=== PATIENT | male | born 1950 | race Caucasian/White ===

== ENCOUNTER 2016-05-21 11:20 | Emergency (ER) | payer MEDICARE ==
[2016-05-21] MEDS ORDERED: Fluorescein Sodium TOPICAL* 1 MG TEST ONE (12:24)
[2016-05-21] MEDS ORDERED: BSS OPTH.SOL* BTL ONE (12:25)
[2016-05-21] MEDS ORDERED: Tetracaine 0.5% OPTH.SOL 15ML* BTL ONE (12:26)
--- NOTE | 2016-05-21 12:45 | UC ---
Eye Complaint HPI - HPI Summary HPI Summary: 66 male presents with complaints of right eye swelling, redness and discharge that began Saturday evening. Patient states the symptoms have not improved over the past couple of days. He tried using sterile drops of his wives that seemed to help this morning but it then symptoms returned. Admits to a clear discharge that makes him feel as though something is in his eye. Denies getting anything in eye, scratching eye and green goopy discharge. Denies itching, crusting, and visual changes. Admits to having dry eyes and long distance driving does make this worse. Patient drove Saturday 4 hours, symptoms began shortly after. Denies fever/chills and any other medications. Patient does complain of mild irritation and pain upon movement and describes it "as though something is in my eye". Admits to it causing a slight headache. Patient does not wear contacts , does wear reading glasses. - History of Current Complaint Chief Complaint: UCEye Stated Complaint: EYE COMPLAINT Time Seen by Provider: 05/21/16 11:48 Hx Obtained From: Patient Onset/Duration: Sudden Onset, Lasting Days, Still Present Timing: Constant Severity Initially: Mild Severity Currently: Moderate Location of Injury: Conjunctiva, Globe Character: Foreign Body Sensation Aggravating Factor(s): Other - movement Alleviating Factor(s): Eye Drops Associated Signs And Symptoms: Positive: Drainage (Clear), Swelling. Negative: Vision Impairment Right, Vision Impairment Left, Fever - Risk Factors Penetrating Injury Risk Factor: Negative Globe Rupture Risk Factors: Negative Acute Glaucoma Risk Factors: Negative Optic Artery Occlusion Risk Factors: Negative - Allergies/Home Medications Allergies/Adverse Reactions: Allergies Allergy/AdvReac Type Severity Reaction Status Date / Time No Known Allergies Allergy Verified 05/21/16 11:52 Home Medications: Home Medications Atorvastatin* [Lipitor*] 20 mg PO 1700 05/21/16 [History Confirmed 05/21/16] PMH/Surg Hx/FS Hx/Imm Hx Endocrine History Of: Denies: Diabetes, Thyroid Disease Cardiovascular History Of: Denies: Cardiac Disorders, Hypertension Respiratory History Of: Denies: COPD, Asthma GI/ History Of: Denies: Ulcer - Surgical History Surgical History: None - Family History Known Family History: Positive: None - Social History Alcohol Use: Daily Substance Use Type: None Smoking Status (MU): Never Smoked Tobacco - Immunization History Vaccination Up to Date: Yes Review of Systems Constitutional: Negative Skin: Negative Eyes: Drainage, Eye Redness ENT: Negative Respiratory: Negative Cardiovascular: Negative Gastrointestinal: Negative Motor: Negative Neurovascular: Negative Musculoskeletal: Negative Neurological: Headache Psychological: Negative All Other Systems Reviewed And Are Negative: Yes Physical Exam Triage Information Reviewed: Yes Appearance: Well-Appearing, No Pain Distress, Well-Nourished Vital Signs: Initial Vital Signs Temp 98.6 F 05/21/16 11:48 Pulse 52 05/21/16 11:48 Resp 18 05/21/16 11:48 BP 151/76 05/21/16 11:48 Pulse Ox 98 05/21/16 11:48 BP noted and recommended follow up with PCP to have it re-checked. States it typically runs around the 140's systolic. Vital Signs Reviewed: Yes Eyes: Positive: Conjunctiva Inflamed, Discharge - clear, Other: - PERRLA. Some irritation/pain with EOM however they are intact. fluroscein stain preformed right eye and without FB and corneal abrasion. no sign of blephartis. conjunctiva red and inflammed. clear discharge. denies pruritis. swelling and erythema of upper and lower lid right eye noted. fundoscopic exam and visual acuity normal. ENT Exam: Normal ENT: Positive: Normal ENT inspection, Hearing grossly normal, Pharynx normal, TMs normal Dental Exam: Normal Dental: Negative: Percussion Tenderness @, Cervical Lymphadenopathy Neck exam: Normal Neck: Positive: Supple, Nontender, No Lymphadenopathy Respiratory: Positive: Chest non-tender, Lungs clear, Normal breath sounds, No respiratory distress, No accessory muscle use Cardiovascular: Positive: RRR, No Murmur Abdominal Exam: Normal Musculoskeletal: Positive: Strength Intact, ROM Intact Neurological: Positive: Alert Psychological Exam: Normal Skin Exam: Normal Procedures - Eye Procedure Alcaine Drops Administered: Yes - right eye for fluroscein stain procedure Eye Complaint Course/Dx - Course Course Of Treatment: OTC treatment recommended due to symptoms not appearing to be bacterial at this time. appears to be suffering from viral conjunctivitis. patient was educated on worsening signs and symptoms to watch out for and to return for. unable to check eye pressure without tonopen however does not appear to be suffering from acute angle glaucoma at this time. antihistamine and lubrication drops, hot/cool compresses treatment at this time. tylenol for pain. follow up with pcp about blood pressure. follow up with optho especially if symptoms do not improve. 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 You may also want to try eye lubricants, also over the counter. Take ibuprofen/aleve as needed for pain and headache. Use warm compresses to help draw out discharge and cool compresses for swelling and to soothe. If your symptoms worsen such as vision loss, increasing pain, or increased swelling or do not improve please seek medical attention promptly. Follow up with your primary care provider or eye doctor in the next couple of days. Keep hands and fingers out of eyes as much as possible. Wash hands frequently and change pillow cases/towels as this is very contagious.
== END 2016-05-21 12:52 | disposition home or self-care (01) ==
LOC: UCEAST 11:20
DX: B30.9 Viral conjunctivitis, unspecified (principal)
CPT/HCPCS: 99201; A9270-GY; G0463

== ENCOUNTER 2017-03-06 12:34 | Observation (INO) | payer MEDICARE ==
--- NOTE | 2017-02-21 08:06 | HP ---
CC: Dr. Campoverde * PREOPERATIVE HISTORY AND PHYSICAL: DATE OF ADMISSION: DATE OF PREOPERATIVE HISTORY AND PHYSICAL EXAMINATION: 02/20/17 This patient is scheduled for same-day surgery admission by Dr. Vasquez on 03/06/17. ATTENDING SURGEON: Myke Vasquez MD * (dictated by Fransico Daley NP). CHIEF COMPLAINT: Bilateral inguinal hernias and umbilical hernias. HISTORY OF PRESENT ILLNESS: The patient is a 67-year-old male referred to Dr. Vasquez from Dr. Campoverde for evaluation of bilateral inguinal hernias and umbilical hernias. The patient states he has known about the hernias for about 3 years. They seldom lead to discomfort, but he is cautious about lifting to prevent exacerbation. He is still able to do most activities. He denies any signs or symptoms to suggest incarceration or strangulation. He has occasional constipation and pushes on the inguinal area at times to help evacuation. He underwent colonoscopy in May 2016 when he was still living in [place] and multiple benign polyps were found; the gastroenterologyt recommended repeat colonoscopy within a year and the patient does have a referal to Gastroenterology. Dr. Vasquez examined the patient and in the standing position, large bilateral inguinal hernias are identified; in the supine position, umbilical hernia is identified. Dr. Vasquez has recommended laparoscopic repair of the bilateral inguinal hernias with mesh and open umbilical hernia repair at the same setting. Dr. Vasquez described the nature of the surgical procedures, the rationale for the procedure, the relevant risks and benefits and today, I reviewed the expected postoperative care and recovery. The patient has had a chance to ask questions and stated that he understands the information and is satisfied with the answers given to his questions. He will sign surgical consent on the day of surgery. PAST MEDICAL HISTORY: 1. Hypercholesterolemia. 2. Attention deficit disorder associated with anxiety and depression. 3. Migraine headaches. PAST SURGICAL HISTORY: Tonsillectomy. MEDICATIONS: 1. Metoprolol 25 mg one half tablet p.o. b.i.d. and he takes this for prevention of migraine headaches. 2. Atorvastatin 40 mg in the morning. 3. Sumatriptan 100 mg p.r.n. migraine headache, use 100 mg at the onset of the headache and may repeat after 2 hours as needed. ALLERGIES: No known drug allergies. FAMILY HISTORY: No known anesthesia complications, bleeding tendencies, or clotting disorders. SOCIAL HISTORY: He is and is retired. He is a former smoker who quit in 1969. He drinks approximately 5 alcoholic beverages per week and denies the use of other substances and exercises regularly. REVIEW OF SYSTEMS: Constitutional: No fever, chills, excessive fatigue or weight loss. Endocrine: No diabetes or thyroid disease. Hematologic: No easy bruising or bleeding. No previous blood transfusions. Respiratory: No dyspnea on exertion. No chronic cough. Cardiovascular: No anginal chest pain or palpitations. Gastrointestinal: As described in history of present illness. Genitourinary: No dysuria. Musculoskeletal: No joint or back pain. Neurologic: Occasional migraine headache. General: No history of deep vein thrombosis or pulmonary embolism; he states that he had a very slow recovery from anesthesia after colonoscopy in May 2016 while hospitalized in [place] and he states that his heart rate went down into the 30s during the recovery from anesthesia. PHYSICAL EXAMINATION GENERAL SURVEY: The patient is a 67-year-old male well developed, well nourished, in no acute distress. VITAL SIGNS: Height 72 inches, weight 179 pounds. Body mass index 24.3. Blood pressure 126/76, pulse 64 and regular, respiratory rate 16, temperature 96.9 tympanic. HEENT: Benign. NECK: Supple. No cervical lymphadenopathy. BACK: No CVA tenderness. LUNGS: Breath sounds bilaterally clear and equal. HEART: Regular rate and rhythm. No murmurs or rubs appreciated. ABDOMEN: Active bowel sounds. Soft and nondistended. Umbilical hernia is significantly tender. There are no overlying skin changes. No organomegaly. PELVIC: Inguinal exam is done by Dr. Vasquez revealed large bilateral inguinal hernias. Testicles normally descended without lesion. RECTAL: Deferred. MUSCULOSKELETAL: Full range of motion. No edema. No skin lesions. NEUROLOGIC: Alert and oriented x3. Steady gait. SKIN: Warm, dry, and intact. IMPRESSION: Bilateral inguinal hernias and umbilical hernia. PLAN: Same-day surgery admission to Dr. Vasquez's service on 03/06/17 , for laparoscopic repair of bilateral inguinal hernias with mesh and open umbilical hernia repair. FRANSICO DALEY, SPECIALIST FIELD ENGINEER [id number]/[facility] #: [id number] PARMJIT
[~2017-03-06 12:34] MED LIST: Buffered Lidocaine 0.9% SYRIN* 5 ML/SYR SYRINGE INTRADERM ONE; Buffered Lidocaine 0.9% SYRIN* 5 ML/SYR SYRINGE ONE; ceFAZolin 2 GM PREMIX (*) 2 GM/50 ML BAG IVPB ONE
[2017-03-06] MEDS ORDERED: fentaNYL* 50 MCG/ML 2 ML VIAL (100 MCG VIAL) ONE ×5 (15:21→21:11)
[2017-03-06] MEDS ORDERED: Midazolam* 1 MG/ML 2 ML VIAL (2 MG) ONE (15:21)
[2017-03-06] MEDS ORDERED: Bupivacaine 0.25% SDV* 30 ML ONE (16:03)
[2017-03-06] MEDS ORDERED: Lidocaine 2% PF * 5 ML VIAL ONE (16:17)
[2017-03-06] MEDS ORDERED: Ondansetron INJ* 2 MG/ML VIAL ONE (16:17)
[2017-03-06] MEDS ORDERED: Succinylcholine* 20 MG/ML 10 ML VIAL ONE (16:17)
[2017-03-06] MEDS ORDERED: Dexamethasone IV* 4 MG/ML 1 ML (4 MG) ONE (16:17)
[2017-03-06] MEDS ORDERED: Propofol* 10 MG/ML 20 ML BTL IV PUSH ONE (16:17)
[2017-03-06] MEDS ORDERED: Cisatracurium* 2 MG/ML MDV 5 ML ONE (16:33)
[2017-03-06] MEDS ORDERED: Naloxone* 0.4 MG/ML 1 ML VIAL IV PRN (16:45)
[2017-03-06] MEDS ORDERED: Metoclopramide IV* 5 MG/ML 2 ML VIAL IV PRN (16:45)
[2017-03-06] MEDS ORDERED: HYDROmorphone INJ* 1 MG/ML CARPUJECT SYRINGE IV PRN (16:45)
[2017-03-06] MEDS ORDERED: EPHEDrine (Pressors)* 50 MG/ML VIAL ONE (16:53)
--- NOTE | 2017-03-06 18:59 | BRIEFOPN ---
Brief Operative Note - Surgery Procedures: Pre-OP Diagnoses: Bilateral inguinal hernia, umbilical hernia Post-op Diagnosis: same Procedure: Laparoscopic bilateral hernia repair with mesh, umbilical hernia repair Surgeon: Pedro Asst: Avel Anethesia: JOSE Acosta EBL: 40cc IVF: 1800cc LR Specimen: none Drains: none
[2017-03-06] MEDS: fentaNYL* 50 MCG/ML 2 ML VIAL (100 MCG VIAL) IV PRN ×5 (19:03→21:13)
[2017-03-06] MEDS ORDERED: HYDROmorphone INJ* 2 MG/ML CARPUJECT SYRINGE ONE (19:11)
[2017-03-06] MEDS ORDERED: oxyCODONE/Acetamin 5/325 MG* TAB ONE (21:12)
[2017-03-06] MEDS ORDERED: Ondansetron INJ* 2 MG/ML VIAL IV PRN (22:50)
[2017-03-06] MEDS ORDERED: SUMAtriptan TAB* 100 MG PO PRN (22:52)
[2017-03-06] MEDS ORDERED: Morphine INJ* 2 MG/ML 1 ML SYRINGE (TWO MG - NEW SYRINGE VERSION) IV PRN (22:54)
[2017-03-06] MEDS ORDERED: Ketorolac INJ* 30 MG/ML 1 ML VIAL ONE (23:13)
[2017-03-06] MEDS: Ketorolac INJ* 30 MG/ML 1 ML VIAL IV PRN (23:14)
[2017-03-07] MEDS: oxyCODONE/Acetamin 5/325 MG* TAB PO PRN ×2 (01:18→11:22)
[2017-03-07 04:14] VITALS: BP 125/45
[2017-03-07] MEDS: Ketorolac INJ* 30 MG/ML 1 ML VIAL IV PRN (05:59)
[2017-03-07] MEDS ORDERED: Heparin VIAL(*) 5000 UNITS/ML VIAL (FIVE THOUSAND) SUBCUT SCH (06:00)
[2017-03-07] MEDS ORDERED: Metoprolol Tartrate TAB* 25 MG PO SCH (09:00)
--- NOTE | 2017-03-07 11:11 | OP ---
CC: Dr. Terrence Campoverde * DATE OF OPERATION: 03/06/17 - ROOM #343 DATE OF : 46 SURGEON: Myke Vasquez MD INTEGRATION LEAD: EILEEN Ko ANESTHESIOLOGIST: Vannessa Acosta MD ANESTHESIA: General. PRE-OP DIAGNOSES: Bilateral inguinal hernia repair and umbilical hernia. POST-OP DIAGNOSES: Bilateral inguinal hernia repair and umbilical hernia. OPERATIVE PROCEDURE: Laparoscopic bilateral inguinal hernia repair with mesh and primary closure of an umbilical hernia. ESTIMATED BLOOD LOSS: 40 cc. IV FLUIDS: 1800 cc of crystalloid fluid given. SPECIMEN: None. DRAINS: None. DESCRIPTION OF PROCEDURE: The patient was identified in the preoperative area, marked, brought to the operating room, and placed on the operating table in the supine position. Preoperative antibiotics were given. Sequential devices were placed on bilateral lower extremities. General anesthesia was induced. Cantu catheter inserted. The patient's lower abdomen was clipped of hair and then prepped and draped in standard surgical fashion. A time-out was performed. An infraumbilical incision was made. This was deepened down to the anterior fascia on the left side. Rectus pillar was retracted laterally and entry into the preperitoneal plane was made. Blunt dissection was carried out and then a 12-mm trocar was inserted into the space. Laparoscope was inserted and additional two 5- mm trocars were inserted in the lower midline. Blunt dissection was used to identify pubic symphysis and Tomas's ligament on the left. There was no evidence of indirect hernia at the site. Epigastric vessels were identified and these were maintained anteriorly. We entered into the space of Bogros and then identified the large hernia sac. This was gently reduced, but at one point we did enter into the sac where we saw colon. Colon appeared to be a slider. We had reduced this large hernia defect prior to putting the patient to sleep, but there was a portion of colon with proximal sac and this was taken down with lysis. We did a very small serosal injury, but it was very small and did not reflect our plan. Once the colon was lysed off the sac, the sac was completely transected rather than completely reduced from the inguinal canal as this was tight. Spermatic vessels and vas deferens were identified. These were maintained safely throughout the large peritoneal opening. From the transection of this, the sac was brought in together. We placed clips as well as Endoloop, 2-0 Vicryl, to reapproximate this as best as we could, but I did not feel that this was completely closed. We did have a good view and we are able to see the full myopectineal orifice on this side. I made decision to place a composite mesh. Prior to placing the mesh, however, we turned our attention to the right groin, symphysis and the Otmas's ligament on this side were identified. A large direct hernia was identified. We then maintained vessels anteriorly and opened up into Bogros space. There was no indirect component. With gentle retraction, we reduced the direct component. Next, we returned out attention to the left. Using an 8 x [address] hernia patch, we rolled this up and placed it into the preperitoneal plane. It unfurled with ease, we tacked it to Tomas's ligament making sure that the separate mesh, portion of the composite mesh was facing us and facing down. We also tacked this laterally. It covered the indirect space well. Next, we placed a Bard 3D mesh into the preperitoneal plane, allowed this unfurl and tacked it in the appropriate place in the left groin at the Tomas's ligament, but also ensured that it overlapped, taking our last clip on to Tomas 's ligament on the left side and pulling in the composite mesh with it to make for full coverage. Mesh had appeared to cover the appropriate defects without tension or wrinkling. We allowed the preperitoneal plane to collapse, trocars removed under direct vision. Attention was then turned towards the umbilicus. Sharp dissection was utilized to free umbilical skin from the defect. The defect was approximately a subcentimeter. We reduced the preperitoneal fat and reapproximated the defect with 0 Prolene suture in simple fashion. Wound was then irrigated, local injected. We then closed the anterior fascial opening overlying the left rectus muscle with 0 Polysorb suture in a figure-of-8 fashion. Hemostasis was excellent. All 3 skin incisions were reapproximated with 4-0 Monocryl and subcuticular stitches, followed by Steri-Strips and sterile dressing. The patient tolerated the procedure well, was awoken up in the OR, and transferred to PACU in stable condition. Both testicles were identified in the scrotum appropriately. There was air in the scrotum and air did track up to the upper chest from this dissection. [id number]/[facility] #: [id number] [facility] HOSPITALBelen
--- NOTE | 2017-03-07 23:24 | DS ---
DISCHARGE SUMMARY: DATE OF ADMISSION: 03/06/17 DATE OF DISCHARGE: 03/07/17 HOSPITAL COURSE: Mr. Gray is a 67-year-old gentleman who presented on same- day surgery 03/06/17, underwent a bilateral laparoscopic inguinal hernia repair and an umbilical hernia repair. In the postoperative period, the patient had significant abdominal pain and the decision was made to keep him in the overnight period for pain control. The patient started showing some improvement by around midnight. He was able to walk around and make it to the bathroom. He did have a Cantu catheter placed at the time of surgery and also did develop pneumoperitoneum and subcutaneous emphysema during the laparoscopic procedure. PHYSICAL EXAMINATION: On the day of discharge, the patient was examined. He was afebrile. Vital signs are stable. He was alert and oriented x3, in no apparent distress. Lungs are clear to auscultation bilaterally. Abdomen is soft and nondistended. Incisional tenderness as well as groin tenderness in the left and right without ecchymosis. No erythema. Dressings in place. Rectal exam not performed. Extremities: Within normal limits without calf tenderness. IMPRESSION: Postop day#1 from procedure as stated above. Plan is for discharge home. Follow up in the office. The patient has prescription for pain medications already filled and he will resume his previous medications. We will see him in the office and he has appointment next week. [id number]/[facility] #: [id number] PARMJIT
== END 2017-03-07 13:15 | disposition home or self-care (01) ==
LOC: OR 12:34 → SSU 22:50
PROVIDERS: ADMIT Surgery; ATTEND Surgery
PROC: 0YUA4JZ Supplement Bilateral Inguinal Region with Synthetic Substitute, Percutaneous Endoscopic Approach (ICD-10-PCS; principal; 2017-03-06 13:45)
DX: K40.20 Bilateral inguinal hernia, without obstruction or gangrene, not specified as recurrent (principal); K42.9 Umbilical hernia without obstruction or gangrene
CPT/HCPCS: 96374; 96375; A9270-GY; C1776; C1781; G0378; J0330; J0690; J1100; J1170; J1644; J1885; J2250; J2405; J2704; J3010

== ENCOUNTER 2018-03-11 10:06 | Emergency (ER) | payer MEDICARE ==
--- OUTSIDE RECORDS SUMMARY | 2018-03-11 10:27 | XMS REPORT | Continuity of Care Document ---
:1950 External Reference #:[id number] Author Name Santamaria Toma Care Team Providers Name Role Phone Terrence Campoverde MD Primary Care Physician Unavailable Payers Type Date Identification Numbers Payment Provider Subscriber Policy Number: [id number] [employer] Medicare Jaime Gray Group Number: [id number] [id number] PayID: [id number] [place] [address] PayID: [id number] Medicare D - Drug Plan Jaime Gray Advance Directives Type Date Description Status Comment Other Directive 12/09/2017 Health Care Proxy Current and Verified Problems Date Description Provider Status Onset: 12/09/2017 Chronic lymphoid leukemia, Faisal Brooks, Active disease Eva,FACP Onset: 2017 Bilateral recurrent inguinal Terrence Campoverde M.D. Active hernia Onset: 2017 Benign neoplasm of colon Terrence Campoverde M.D. Active Onset: 2017 Disorder of skin and/or Terrence Campoverde M.D. Active subcutaneous tissue Onset: 2017 Migraine with typical aura Terrence Campoverde M.D. Active Onset: 04/01/2017 Mixed hyperlipidemia Terrence Campoverde M.D. Active Onset: 01/09/2018 Premature beats Terrence Campoverde M.D. Active Onset: 01/30/2018 Pulmonary embolism Sherley Negrete MD Active Onset: 2017 Migraine without aura, not Terrence Campoverde M.D. Inactive refractory Inactive: 02/05/2017 Family History Date Family Member(s) Problem(s) Comments Father due to Prostate Cancer () Mother due to Natural Causes () Siblings 1 First Brother Alive And Well Social History Type Date Description Comments Sex Unknown Marital Status Lives With Spouse Occupation Retired Tobacco Use Start: Unknown End: Former Cigarette Smoker Unknown Smoking Status Reviewed: 02/26/18 Former Cigarette Smoker ETOH Use Denies alcohol use ETOH Use 12/09/2017 Consumed 1 glass of wine per day in the past Tobacco Use Start: Unknown End: Patient is a former smoker Unknown Recreational Drug Use Denies Drug Use Exercise Type/Frequency Exercises regularly Allergies, Adverse Reactions, Alerts Description No Known Drug Allergies Medications Medication Date Status Form Strength Qnty SIG Indications Ordering Provider Vitamin B-2 02/26 Active Tablets 200mg 100ta 1 by mouth bs every day MD Penelope Sumatriptan 02/26 Active Tablets 50mg 9tabs one by mouth Other as needed Ordering for Provider headache. june repeat after 2 hrs. max 4 tablets in 24 hours Shingrix 01/09 Active Suspension 50mcg/0.5 2unit 0.5 C91.10 Rec ML s milliliters ole Campoverdeusckaren M.D. r now and 2-3 months later repeat Atorvastatin Active Tablets 40mg 90tab 1 tab daily Russell Calcium s at bed time Eva Campoverde Eliquis Active Tablets 5mg 1 by mouth Unknown twice a day Magnesium Active Capsules 500mg twice daily Unknown Valium 12/09 Hx Tablets 5mg 5tabs 1 by mouth 1 Faisal hr prior to Betsy Brooks, - MRI, june M.D.,FACP 01/09 repeat 5 min before MRI prn Acetazolamide 09/04 Hx Tablets 250mg 30tab 1 tab bid s initiated 24 Pachikara, - to 48 hours M.D. 12/09 before ascent and continue for 48 hours while at high altitude, Oxycodone-Acet 02/20 Hx Tablets 5-325mg 12tab 1 tab by Maira aminophen s mouth every B. 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 12/02 repeat after 2h as needed Metoprolol 02/01 Hx Tablets 25mg 30tab 02/12 tab by G43.009 Faisal Andujar s mouth twice Betsy Brooks, - a day Eva,FACP 04/01 Ibuprofen 00 Hx Capsules 200mg as needed Unknown /0000 - 01/30 Immunizations CPT Code Status Date Vaccine Reaction Lot # [id number] Given 01/09/2018 Pneumonia Vaccine [id number] Given 12/09/2017 Influenza Virus Vaccine, [id number] Quadrivalent, Split, Preservative Free [id number] Given 04/01/2017 Zoster (Zostavax) no reaction, pt [id number] tolerated well 97364 Given 03/14/2017 Influenza Virus Vaccine, [id number] Quadrivalent, Split, Preservative Free [id number] Given 2017 Pneumococcal Conjugate [id number] Vaccine 13 Valent For Intramuscular Use Vital Signs Date Vital Result Comment 02/26/2018 10:08am Height 72 inches 6'0" Weight 166.50 lb Heart Rate 41 /min BP Systolic 133 mmHg BP Diastolic 56 mmHg Body Temperature 96.7 F O2 % BldC Oximetry 100 % BMI (Body Mass Index) 22.6 kg/m2 01/30/2018 8:26am Height 72 inches 6'0" Weight 166.00 lb Heart Rate 49 /min BP Systolic 170 mmHg BP Diastolic 80 mmHg Body Temperature 96.5 F O2 % BldC Oximetry 98 % BMI (Body Mass Index) 22.5 kg/m2 01/09/2018 9:55am Height 72 inches 6'0" Weight 169.25 lb Heart Rate 53 /min BP Systolic 148 mmHg BP Diastolic 90 mmHg Body Temperature 97.1 F O2 % BldC Oximetry 98 % BMI (Body Mass Index) 23.0 kg/m2 12/09/2017 8:05am Height 72 inches 6'0" Weight 170.00 lb Heart Rate 61 /min BP Systolic Sitting 140 mmHg BP Diastolic Sitting 68 mmHg Body Temperature 96.9 F O2 % BldC Oximetry 99 % BMI (Body Mass Index) 23.1 kg/m2 12/02/2017 1:07pm Height 72 inches 6'0" Weight 167.00 lb Heart Rate 57 /min BP Systolic 130 mmHg BP Diastolic 60 mmHg Body Temperature 97.0 F O2 % BldC Oximetry 100 % BMI (Body Mass Index) 22.6 kg/m2 07/22/2017 10:05am Heart Rate 64 /min BP Systolic 120 mmHg BP Diastolic 80 mmHg Respiratory Rate 16 /min Body Temperature 96.6 F 07/10/2017 1:42pm Height 72 inches 6'0" Weight 166.12 lb Heart Rate 72 /min BP Systolic Sitting 126 mmHg BP Diastolic Sitting 70 mmHg O2 % BldC Oximetry 97 % BMI (Body Mass Index) 22.5 kg/m2 04/11/2017 10:06am Heart Rate 68 /min BP Systolic 130 mmHg BP Diastolic 82 mmHg Respiratory Rate 16 /min Body Temperature 96.9 F 04/01/2017 1:04pm Weight 180.00 lb Heart Rate 62 /min BP Systolic 123 mmHg BP Diastolic 70 mmHg Body Temperature 96.4 F O2 % BldC Oximetry 99 % 03/14/2017 11:03am Heart Rate 52 /min BP Systolic Sitting 102 mmHg BP Diastolic Sitting 68 mmHg Respiratory Rate 16 /min Body Temperature 97.3 F 02/20/2017 10:33am Height 72 inches 6'0" Weight 179.00 lb Heart Rate 64 /min BP Systolic 126 mmHg BP Diastolic 76 mmHg Respiratory Rate 16 /min Body Temperature 96.9 F BMI (Body Mass Index) 24.3 kg/m2 02/14/2017 1:52pm Height 72 inches 6'0" Weight 179.00 lb Heart Rate 60 /min BP Systolic 130 mmHg BP Diastolic 82 mmHg Respiratory Rate 16 /min Body Temperature 96.9 F BMI (Body Mass Index) 24.3 kg/m2 2017 10:24am Weight 179.50 lb Heart Rate 51 /min BP Systolic 130 mmHg BP Diastolic 80 mmHg Body Temperature 95.8 F O2 % BldC Oximetry 99 % 07/25/2016 8:16am Height 73 inches 6'1" Weight 195.00 lb BP Systolic 130 mmHg BP Diastolic 80 mmHg Respiratory Rate 20 /min Body Temperature 97.4 F Pain Level 0 BMI (Body Mass Index) 25.7 kg/m2 07/18/2016 10:57am Height 73 inches 6'1" Weight 195.00 lb BP Systolic 143 mmHg BP Diastolic 84 mmHg Respiratory Rate 16 /min Body Temperature 97.4 F Pain Level 1 BMI (Body Mass Index) 25.7 kg/m2 Results Test Date Facility Test Result H/L Range Note CBC Auto Diff 01/21/2018 [facility] White Blood 38.2 10^3/uL High 3.5-10.[address] [place] [address] [phone] Red Blood Count 4.60 10^6/uL N 4.00-5.40 Hemoglobin 14.2 g/dL N 14.0-18.0 Hematocrit 43 % N 42-52 Mean Corpuscular Volume 94 fL N 80-94 Mean Corpuscular Hemoglobin 31 pg N 27-31 Mean Corpuscular HGB Conc 33 g/dL N 31-36 Red Cell Distribution Width 13 % N 10.5-15 Platelet Count 408 10^3/uL N 150-450 Mean Platelet Volume 6.6 fL Low 7.4-10.4 Abs Neutrophils 4.9 10^3/uL N 1.5-7.7 Abs Lymphocytes 32.1 10^3/uL High 1.0-4.8 Abs Monocytes 1.0 10^3/uL High 0-0.8 Abs Eosinophils 0.1 10^3/uL N 0-0.6 Abs Basophils 0.1 10^3/uL N 0-0.2 Abs Nucleated RBC (SEE NOTE) 10^3/uL 1 Granulocyte % 12.9 % Lymphocyte % 84.0 % Monocyte % 2.5 % Eosinophil % 0.4 % Basophil % 0.2 % Nucleated Red Blood Cells % 0 2 Laboratory test 01/21/2018 [facility] Pathologist (SEE NOTE) [address] [place] [address] [phone] Order 01/09/2018 [facility] In-House EKG viewed Dr. Campoverde Comp Metabolic 12/30/2017 [facility] Sodium 141 mmol/L N 135- [address] [place] [address] [phone] Potassium 4.8 mmol/L N 3.5-5.0 Chloride 103 mmol/L N 101-111 Co2 Carbon Dioxide 34 mmol/L High 22-32 Anion Gap 4 mmol/L N 2-11 Glucose 115 mg/dL High 70-100 Blood Urea Nitrogen 12 mg/dL N 6-24 Creatinine 0.80 mg/dL N 0.67-1.17 BUN/Creatinine Ratio 15.0 N 8-20 Calcium 9.8 mg/dL N 8.6-10.3 Total Protein 6.5 g/dL N 6.4-8.9 Albumin 4.5 g/dL N 3.2-5.2 Globulin 2.0 g/dL N 2-4 Albumin/Globulin Ratio 2.3 N 1-3 Total Bilirubin 0.50 mg/dL N 0.2-1.0 Alkaline Phosphatase 56 U/L N 34-104 Alt 24 U/L N 7-52 Ast 25 U/L N 13-39 Egfr Non- 95.8 >60 Egfr 116.0 >60 4 Iron & Iron Binding 12/30/2017 [facility] Iron 75 g/dL N 50- [address] [place] [address] [phone] Unsaturated Iron Binding < 335 g/dL Total Iron Binding Capacity 350 g/dL N 250-450 Transferrin 250 mg/dL N 203-362 % Iron Saturation 21 % N 15-55 Laboratory test 12/30/2017 [facility] Ferritin 81.4 ng/mL N 24 -[address] [place] [address] [phone] CBC Auto Diff 12/30/2017 [facility] White Blood 33.1 High 3.5- 10.[address] Count 10^3/[place] [address] [phone] Red Blood Count 4.28 10^6/uL N 4.00-5.40 Hemoglobin 13.3 g/dL Low 14.0-18.0 Hematocrit 40 % Low 42-52 Mean Corpuscular Volume 94 fL N 80-94 Mean Corpuscular Hemoglobin 31 pg N 27-31 Mean Corpuscular HGB Conc 33 g/dL N 31-36 Red Cell Distribution Width 14 % N 10.5-15 Platelet Count 357 10^3/uL N 150-450 Mean Platelet Volume 7.0 fL Low 7.4-10.4 Abs Neutrophils 6.4 10^3/uL N 1.5-7.7 Abs Lymphocytes 25.9 10^3/uL High 1.0-4.8 Abs Monocytes 0.6 10^3/uL N 0-0.8 Abs Eosinophils 0.1 10^3/uL N 0-0.6 Abs Basophils 0.1 10^3/uL N 0-0.2 Abs Nucleated RBC 0 10^3/uL Granulocyte % 19.3 % Low 38-83 Lymphocyte % 78.4 % High 25-47 Monocyte % 1.9 % N 0-7 Eosinophil % 0.2 % N 0-6 Basophil % 0.2 % N 0-2 Nucleated Red Blood Cells % 0 Laboratory 12/30/2017 [facility] Pathologist (SEE 5 test finding [address] Review NOTE) [place] [address] [phone] Hepatitis B 12/30/2017 [facility] Hepatitis B Not Abnormal Immune Dieudonne AB Titer [address] [place] [address] [phone] Hep B Surf AB Level < 3.10 mIU/mL >12 Laboratory 12/30/2017 [facility] Hepatitis B Nonreactive Nonreactive test finding [address] [place], [place] [id number] [phone] Hepatitis B Core AB Igm Nonreactive Nonreactive Hepatitis C Antibody 12/30/2017 [facility] HCV Index < 0.[address] [place] [address] [phone] Hepatitis C Antibody Nonreactive Nonreactive Chronic Lymphocytic 12/30/2017 [facility] CLL Specimen Blood Leukemia [address] [place], [place] [id number] [phone] CLL Reason for Referral See Comment 6 CLL Method See Comment 7 CLL Result Table See Comment 8 CLL Result See Comment 9 CLL Result Summary Abnormal CLL Interpretation See Comment 10 CLL Disclaimer See Comment 11 CLL Released by See Comment 12 Laboratory test 12/30/2017 [facility] Miscellaneous See Comment [address] [place] [address] [phone] Order 12/18/2017 [facility] Stool cards for negative occult blood x 3 Laboratory test 12/09/2017 [facility] Pathologist (SEE NOTE) [address] [place], [place] [id number] [phone] Leukemia/Lympho 12/09/2017 [facility] Path Interpret > (SEE NOTE ) 15 ma Flow [address] [place], [place] [id number] [phone] Laboratory test 12/09/2017 [facility] LDH 111 U/L Low 140- finding [address] [place] [address] [phone] CBC Auto Diff 12/09/2017 [facility] White Blood Count 34.5 10^3/ uL High 3.5- [address] 10[address]8 [place] [address] [phone] Red Blood Count 4.29 10^6/uL N 4.00-5.40 Hemoglobin 13.2 g/dL Low 14.0-18.0 Hematocrit 41 % Low 42-52 Mean Corpuscular Volume 95 fL High 80-94 Mean Corpuscular Hemoglobin 31 pg N 27-31 Mean Corpuscular HGB Conc 33 g/dL N 31-36 Red Cell Distribution Width 14 % N 10.5-15 Platelet Count 403 10^3/uL N 150-450 Mean Platelet Volume 7.3 um3 Low 7.4-10.4 Abs Neutrophils 6.5 10^3/uL N 1.5-7.7 Abs Lymphocytes 27.0 10^3/uL High 1.0-4.8 Abs Monocytes 0.8 10^3/uL N 0-0.8 Abs Eosinophils 0.1 10^3/uL N 0-0.6 Abs Basophils 0.1 10^3/uL N 0-0.2 Granulocyte % 19.0 % Low 38-83 Lymphocyte % 78.2 % High 25-47 Monocyte % 2.3 % N 0-7 Eosinophil % 0.2 % N 0-6 Basophil % 0.3 % N 0-2 CBC Auto 12/02/2017 [facility] White Blood 31.6 10^3/uL High 3.5-10.[address] [place] [address] [phone] Red Blood Count 4.08 10^6/uL N 4.00-5.40 Hemoglobin 12.6 g/dL Low 14.0-18.0 Hematocrit 38 % Low 42-52 Mean Corpuscular Volume 94 fL N 80-94 Mean Corpuscular Hemoglobin 31 pg N 27-31 Mean Corpuscular HGB Conc 33 g/dL N 31-36 Red Cell Distribution Width 13 % N 10.5-15 Platelet Count 361 10^3/uL N 150-450 Mean Platelet Volume 7.5 um3 N 7.4-10.4 Abs Neutrophils 5.0 10^3/uL N 1.5-7.7 Abs Lymphocytes 25.8 10^3/uL High 1.0-4.8 Abs Monocytes 0.6 10^3/uL N 0-0.8 Abs Eosinophils 0.1 10^3/uL N 0-0.6 Abs Basophils 0.1 10^3/uL N 0-0.2 Abs Nucleated RBC 0 10^3/uL Granulocyte % 15.9 % Low 38-83 Lymphocyte % 81.6 % High 25-47 Monocyte % 2.0 % N 0-7 Eosinophil % 0.3 % N 0-6 Basophil % 0.2 % N 0-2 Nucleated Red Blood Cells % 0 Comp Metabolic Panel 12/02/2017 [facility] Sodium 139 mmol/L N 135-145 [address] [place] [address] [phone] Potassium 4.1 mmol/L N 3.5-5.0 Chloride 103 mmol/L N 101-111 Co2 Carbon Dioxide 30 mmol/L N 22-32 Anion Gap 6 mmol/L N 2-11 Glucose 183 mg/dL High 70-100 Blood Urea Nitrogen 15 mg/dL N 6-24 Creatinine 0.74 mg/dL N 0.67-1.17 BUN/Creatinine Ratio 20.3 High 8-20 Calcium 9.5 mg/dL N 8.6-10.3 Total Protein 6.2 g/dL Low 6.4-8.9 Albumin 4.5 g/dL N 3.2-5.2 Globulin 1.7 g/dL Low 2-4 Albumin/Globulin Ratio 2.6 N 1-3 Total Bilirubin 0.60 mg/dL N 0.2-1.0 Alkaline Phosphatase 60 U/L N 34-104 Alt 18 U/L N 7-52 Ast 20 U/L N 13-39 Egfr Non- 104.9 >60 Egfr 126.9 >60 16 Manual Differential 12/02/2017 [facility] Neutrophil % 17 % Low 38-[address] [place] [address] [phone] Lymphocytes % 82 % High 25-47 Monocytes % 1 % N 0-7 Eosinophils % 0 % N 0-6 Basophil % 0 % N 0-2 Nucleated Red Blood Cells/100 0 N 0-0 Abs Neutrophils 5.4 10^3/uL N 1.5-7.7 Abs Lymphocytes 25.9 10^3/uL High 1.0-4.8 Abs Monocytes 0.3 10^3/uL N 0-0.8 Abs Eosinophils 0 10^3/uL N 0-0.6 Abs Basophils 0 10^3/uL N 0-0.2 Smudge Cells PRESENT Laboratory test 12/02/2017 [facility] Pathologist Review (SEE NOTE) [address] [place] [address] [phone] Laboratory test 11/01/2017 [facility] Surgical Pathology SEE RESULT 18, [address] [place] [address] [phone] Lipid Profile 07/25/2017 [facility] Triglycerides 64 mg/dL 20, 21 (Trig/Chol/HDL) [address] [place] [address] [phone] Cholesterol 159 mg/dL 22 HDL Cholesterol 51.5 mg/dL 23 LDL Cholesterol 95 mg/dL 24 Comp Metabolic Panel 07/25/2017 [facility] Sodium 139 mmol/L N 139-[address] [place] [address] [phone] Potassium 4.5 mmol/L N 3.5-5.0 Chloride 105 mmol/L N 101-111 Co2 Carbon Dioxide 30 mmol/L N 22-32 Anion Gap 4 mmol/L N 2-11 Glucose 98 mg/dL N 70-100 Blood Urea Nitrogen 16 mg/dL N 6-24 Creatinine 0.76 mg/dL N 0.67-1.17 BUN/Creatinine Ratio 21.1 High 8-20 Calcium 9.8 mg/dL N 8.6-10.3 Total Protein 6.1 g/dL Low 6.4-8.9 Albumin 4.2 g/dL N 3.2-5.2 Globulin 1.9 g/dL Low 2-4 Albumin/Globulin Ratio 2.2 N 1-3 Total Bilirubin 0.70 mg/dL N 0.2-1.0 Alkaline Phosphatase 51 U/L N 34-104 Alt 16 U/L N 7-52 Ast 17 U/L N 13-39 Egfr Non- 101.7 >60 Egfr 130.8 >60 25 Laboratory test 06/13/2017 [facility] Surgical SEE RESULT 26, [address] [place] [address] [phone] Laboratory test 03/29/2017 [facility] Surgical SEE RESULT 28, [address] [place] [address] [phone] 1 CORRECTED REPORT --- Corrected on 01/21/18 1012 --- ABS NRBC previously reported as: 55.7 10 3/ul 2 CORRECTED REPORT --- Corrected on 01/21/18 1010 --- NRBC % previously reported as: 145.8 3 Absolute lymphocytosis, compatible with a low-grade lymphoproliferative disorder. No evidence of a prolymphocytic or large cell transformation. Reviewed by Zoie Pinto MD 4 Because ethnic data is not always readily available, this report includes an eGFR for both -Americans and non- Americans. The National Kidney Disease Education Program (NKDEP) does not endorse the use of the MDRD equation for patients that are not between the ages of 18 and 70, are , have extremes of body size, muscle mass, or nutritional status, or are non- or non-. According to the National Kidney Foundation, irrespective of diagnosis, the stage of the disease is based on the level of kidney function: Stage Description GFR(mL/min/1.73 m(2)) 1 Kidney damage with normal or decreased GFR 90 2 Kidney damage with mild decrease in GFR 60-89 3 Moderate decrease in GFR 30-59 4 Severe decrease in GFR 15-29 5 Kidney failure <15 (or dialysis) 5 Leukocytosis with absolute lymphocytosis morphologically consistent with chronic lymphocytic leukemia. Additional studies is warranted. Reviewed by Dr. Coronel 6 C91.10 chronic lymphocytic leukemia of B-cell type not having achieved remission 7 Locus and probes [Strategy;#Nuclei;Class] 6CEN(D6Z1),6q23.3(MYB) [COPY#;200;LDT] 11CEN(D11Z1),11q22.3(ANNIA) [COPY#;200;ASR] 12CEN(D12Z3),12q15(MDM2) [COPY#;200;ASR] 13q14.3(K43H037),13q34(LAMP1) [COPY#;200;ASR] 11q13(CCND1-XT),14q32(IGH-XT) [DFISH;500;ASR] 17p13.1(TP53),17CEN(D17Z1) [COPY#;200;ASR] Probe strategies include: DFISH=dual color, double fusion; COPY#=region gain and loss. 8 Abnormality Name Result Abn Cutoff (%) (%) -6q23(D6Z1x2,MYBx1) Abnormal 41 <4.0 -11q22.3(L78J5x2,ATMx1) Normal <7.5 +12(D12Z3,MDM2)x3 Normal <2.5 -13q14.3(I43E147i4,FSLU0q5) Abnormal 59 <7.0 -13q14.3x2(C61L330p1,GDCS1t5) Normal <1.5 t(11;14) CCND1-XT/IGH-XT fusion Normal <0.6 -17p13.1(TP53x1,A20X4w3) Normal <9.5 -17(TP53,D17Z1)x1 Normal <5.5 9 RESULT: nuc kalani(D6Z1x2,MYBx1)[82/200], ( M13I330k1,CWFK0h0)[118/200] 10 The result is abnormal and indicates 6q and 13q deletions in approximately 50% of nuclei. In CLL, a 6q deletion is associated with an intermediate prognosis (Jabier et al., Leukemia 18:476-483, 2004; Romeo et al., Leuk Lymphoma 52:230-237, 2011). Deletion 6q is a fairly common secondary genetic change associated with disease progression (Hardy et al., Am J Hematol 59:223-229, 1998). 11 Applicable to Analyte Specific Reagent (ASR) and Laboratory Developed Tests (LDT). This test was developed and its performance characteristics determined by [facility] in a manner consistent with CLIA requirements. It has not been cleared or approved by the U.S. Food and Drug Administration. This FISH test does not rule out other chromosome abnormalities. 12 RESULT: Josephine Coburn M.D. 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 The level of mutation identified was 0.3%. The IGH V allele identified was 4-31*03. Somatic hypermutation of the immunoglobulin heavy chain gene variable region (IGH-V) status is a recognized prognostic marker in chronic lymphocytic leukemia. Mutated CLL is defined by the presence of >2% IGH-V somatic mutation (or <98% identify to the closest germline sequence) and is independently associated with a relatively favorable prognosis. In contrast, unmutated IGH-V status, defined as <=2% somatic mutation (or >=98% germline sequence identify) is associated with relatively adverse prognosis (Olivia Glover et al, 2002, [id number]). Correlation of these results with clinical, pathologic and other pertinent laboratory data is required for final interpretation. Signing Pathologist: Delon Anthony M.D., Ph.D. ADDITIONAL INFORMATION Method Summary - IGH somatic mutation analysis: RNA is extracted and IGH gene rearrangements are amplified by PCR method. Next generation sequencing of the PCR product clonal IGH variable (IGHV) region is performed. Sequences of functional IGHV rearrangements are compared to a germline IGH sequence database (IgBlast, http://www.ncbi.nlm.nih.gov/igblast) to determine the closest IGHV gene exon and percent nucleobase identity. Mutated IGHV status is assigned when the frequency of somatic mutation is 2% or greater and unmutated status is <2% compared to germline reference. (See [facility] Interpretive Handbook for method details). This test was developed and its performance characteristics determined by [facility] in a manner consistent with CLIA requirements. This test has not been cleared or approved by the U.S. Food and Drug Administration. Test Performed by: [facility] [address] [place] [address] 14 Leukocytosis with absolute lymphocytosis morphologically compatible with chronic lymphocytic leukemia. Mild macrocytic anemia noted. Additional studies as clinically warranted. Reviewed by Dr. Coronel 15 FINAL DIAGNOSIS: Specimen Source: Peripheral blood Flow cytometry immunophenotypic analysis: Malignant lymphoproliferative disorder with phenotype most suggestive of chronic lymphocytic leukemia. CLL FISH panel for prognostic purposes should be considered. Interpretative data: Blasts: 0% Lymphocytes: 93% of WBCs B-cells: 93% of lymphocytes with kappa light chain restricted, CD19 positive, weak CD20, variable CD5, variable CD23, CD22 positive, CD10 negative phenotype T-cells/NK cells: No aberrant population detected. Markers tested: CD3, CD10, CD16, CD19, CD34, CD45, kappa surface light chains, lambda surface light chains, 7-AAD. Quality Assessment: Acceptable Viability: Acceptable Viable lymphocytes (7-AAD): 100% of gated Specimen received within validated guidelines. A Reid-Giemsa stained slide prepared from the flow cytometry specimen was examined for quality purposes. Electronically signed by: Celso Coronel MD 12/12/17 1070 Technical component performed by: [facility] [address] [place] [address] Configuration Management Architect: Hemal Moyer II, MD, PhD. 16 Because ethnic data is not always readily available, this report includes an eGFR for both -Americans and non- Americans. The National Kidney Disease Education Program (NKDEP) does not endorse the use of the MDRD equation for patients that are not between the ages of 18 and 70, are , have extremes of body size, muscle mass, or nutritional status, or are non- or non-. According to the National Kidney Foundation, irrespective of diagnosis, the stage of the disease is based on the level of kidney function: Stage Description GFR(mL/min/1.73 m(2)) 1 Kidney damage with normal or decreased GFR 90 2 Kidney damage with mild decrease in GFR 60-89 3 Moderate decrease in GFR 30-59 4 Severe decrease in GFR 15-29 5 Kidney failure <15 (or dialysis) 17 Marked absolute lymphocytosis of small mature lymphocytes with clumped chromatin, scant cytoplasm, and numerous smudge cells, compatible with CLL. No evidence of a prolymphocytic or large cell transformation. Reviewed by Zoie Pinto MD 18 948-A:Morphology: irregularly pigmented macule with irregular pigmentary network under dermoscop 19 SEE RESULT BELOW Name: JAIME GRAY : [address]: Ewa Simon MD Acct: [id number] Unit: [id number] AGE: 67 Location: [facility] Re11/01/17 SEX: M Status: REG REF SPEC: [id number] ALEXIA: 11/01/17 [facility] [address]: Ewa Simon MD REQ: [id number] RECD: 11/01/171303 STATUS: SUSAN HONG DR: Terrence Campoverde MD _ ORDERED: LEVEL 4/2 COMMENTS: [id number] FINAL DIAGNOSIS 1. Skin, right posterior shoulder, biopsy: -- Intradermal melanocytic nevus. -- Lesional cells extend to the biopsy base. 2. Skin, left upper abdomen, biopsy: -- Compound melanocytic nevus with architectural disorder and moderate cytologic atypia. -- The lesion is excised in the planes of sectioning examined. PRE-OPERATIVE DIAGNOSIS Irregularly pigmented macule with irregular pigmentary network under dermoscopy; 1) dysplastic nevus 2) dysplastic nevus vs solar lentigo GROSS DESCRIPTION 1. The specimen is received in formalin labeled, Right Posterior Shoulder, and consists of a 0.8 x 0.6 cm almendarez-white ovoid wrinkled hairbearing skin shave with a central 0.4 x 0.3 cm almendarez to focally brown ill-defined patch. The specimen is inked, trisected and submitted entirely in one cassette. 2. The specimen is received in formalin labeled, Left Upper Abdomen, and consists of a 0.8 x 0.7 cm almendarez-white ovoid hairbearing skin shave with a central 0.3 by up to 0.3 cm variegated brown lesion which is inked, trisected and submitted entirely in one cassette. Signed by and Reported on: Zoie Pinto MD 11/04/17 1031 END OF REPORT DEPARTMENT OF PATHOLOGY, [address] [place] [address] Celso Coronel M.D. Director [facility] # [id number] 20 FASTING 21 Desirable: <150 Borderline High: 150-199 High: 200-499 Very High: >500 22 Desirable: <200 Borderline High: 200-239 High: >239 23 Low: <40 Desirable: 40-60 High: >60 24 Desirable: <100 Near Optimal: 100-129 Borderline High: 130-159 High: 160-189 Very High: >189 25 Because ethnic data is not always readily available, this report includes an eGFR for both -Americans and non- Americans. The National Kidney Disease Education Program (NKDEP) does not endorse the use of the MDRD equation for patients that are not between the ages of 18 and 70, are , have extremes of body size, muscle mass, or nutritional status, or are non- or non-. According to the National Kidney Foundation, irrespective of diagnosis, the stage of the disease is based on the level of kidney function: Stage Description GFR(mL/min/1.73 m(2)) 1 Kidney damage with normal or decreased GFR 90 2 Kidney damage with mild decrease in GFR 60-89 3 Moderate decrease in GFR 30-59 4 Severe decrease in GFR 15-29 5 Kidney failure <15 (or dialysis) 26 [id number] 27 SEE RESULT BELOW Name: JAIME GRAY : [address]: Shakeel Goldsmith MD Acct: [id number] Unit: [id number] AGE: 67 Location: [facility] Re06/13/17 SEX: M Status: DEP REF SPEC: [id number] ALEXIA: 06/13/17-1146 [facility] DR: Shakeel Goldsmith MD REQ: [id number] RECD: 06/13/175426 STATUS: SUSAN HONG DR: Terrence Campoverde MD _ ORDERED: LEVEL 4 COMMENTS: [id number] FINAL DIAGNOSIS Colon, rectum, biopsy: -- Tubular adenoma. -- No high grade dysplasia or malignancy. CLINICAL HISTORY Screening/Surveillance for malignancy in asymptomatic patient. History of polyp. POST-OPERATIVE DIAGNOSIS To cecum, poor prep, severe tics, long redundant colon, rectal polyp ? snare; Conclusions/Plan: Colonoscopy in 3 to 5 years. GROSS DESCRIPTION The specimen is received in formalin labeled, Rectal Polyp, and consists of three almendarez-yellow irregular to polypoid soft tissue fragments ranging from 0.4 x 0.2 x 0.1 to to 0.5 x 0.3 x 0.3 cm, which are entirely submitted in one cassette. Signed by and Reported on: Zoie Pinto MD 06/14/17 1025 END OF REPORT DEPARTMENT OF PATHOLOGY, [address] [place] [address] Celso Coronel M.D. Director [facility] # [id number] 28 [id number] 29 SEE RESULT BELOW Name: JAIME GRAY : [address]: Ewa Simon MD Acct: [id number] Unit: [id number] AGE: 67 Location: [facility] Re03/29/17 SEX: M Status: REG REF SPEC: [id number] ALEXIA: 03/29/17- SUBM DR: Ewa Simon MD REQ: [id number] RECD: 03/29/17 STATUS: SUSAN HONG DR: Terrence Campoverde MD _ ORDERED: LEVEL 4 COMMENTS: [id number] FINAL DIAGNOSIS Skin, left upper back, biopsy: -- Compound melanocytic nevus with architectural disorder and moderate cytologic atypia. -- The lesion is excised in the planes of sectioning examined. PRE-OPERATIVE DIAGNOSIS Irregular brown macule; dysplastic nevus GROSS DESCRIPTION The specimen is received in formalin labeled, Left Upper Back, and consists of a 0.9 x 0.8 cm variegated brown-pink skin shave which is inked, serially sectioned and entirely submitted in one cassette. Signed (signature on file) Zoie Pinto MD 0941 END OF REPORT * ML=Testing performed at Main Lab DEPARTMENT OF PATHOLOGY, [address], [place], [place] [address] Celso Coronel M.D. Director [facility] # [id number] Procedures Date Code Description Status 01/16/2018 82149 Holter Monitor Review (24 hr)dr gianna & interp only Completed 01/13/2018 94166 ECG Monitor/Recording W/Visual Superimposition Scanning Completed 01/09/2018 67924 EKG Tracing & Interpretation Completed 06/14/2017 [id number] Colonoscopy Completed 03/06/2017 93374 Laparoscopy, Surgical Repair Initial Inguinal Hernia Completed 03/06/2017 04666 Laparoscopy, Surgical Repair Initial Inguinal Hernia Completed 03/06/2017 67418 Laparoscopy, Surgical Repair Initial Inguinal Hernia Completed 02/11/2007 [id number] Colonoscopy Completed Encounters Type Date Location Provider Dx Diagnosis Office Visit 01/30/2018 8:40a [facility] Sherley Negrete MD R00.2 Palpitations Medicine - [address] G43.109 Migraine with aura, not intractable, w/o status migrainosus G44.019 Episodic cluster headache, not intractable R03.0 Elevated blood-pressure reading, w/o diagnosis of htn I26.99 Other pulmonary embolism without acute cor pulmonale Office Visit 01/09/2018 [facility] Terrence G43.109 Migraine with 10:00a Mani Campoverde M.D. 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, cervical region G43.109 Migraine with aura, not intractable, w/o status migrainosus D72.829 Elevated white blood cell count, unspecified Z23 Encounter for immunization Office Visit 12/02/2017 1:00p [facility] Jimmy Shaikh, K62.5 Hemorrhage of Medicine - [place] anus and rectum [place] Office Visit 07/22/2017 10:00a Surgical Myke PBryce K40.20 [facility] MD, hernia, w/o obst FACS or gangrene, not spcf as recur Office Visit 07/10/2017 1:40p [facility] Zsofia M67.471 Ganglion, right Medicine - [place], [employer] ankle [address] foot Rd M67.472 Ganglion, left ankle and foot K42.9 Umbilical hernia without obstruction or gangrene Office Visit 04/01/2017 [facility] Terrence E78.2 Mixed hyperlipidemia 1:00p Mani Campoverde M.D. [address] H61.23 Impacted cerumen, bilateral Z23 Encounter for immunization Office Visit 02/14/2017 1:45p Surgical Myke Burton K40.20 [facility] MD Pedro, hernia, w/o obst FACS or gangrene, not spcf as recur K42.9 Umbilical hernia without obstruction or gangrene Office Visit 2017 [facility] Terrence E78.2 Mixed hyperlipidemia 10:20a Mani Campoverde M.D. [address] K40.21 Bilateral inguinal hernia, w/o obst or gangrene, recurrent K63.5 Polyp of colon L98.9 Disorder of the skin and subcutaneous tissue, unspecified G43.109 Migraine with aura, not intractable, w/o status migrainosus Z23 Encounter for immunization Office Visit 07/25/2016 Orthopedic Elissa Denise, S61.011D Laceration w/o 9:00a [facility] of right C.M.A. thumb w/o damage to nail, subs Office Visit 07/18/2016 Orthopedic Melody S61.011A Laceration w/o 10:30a [facility] Eva Isabel fb of right C.M.A. thumb w/o damage to nail, init Plan of Treatment Future Appointment(s):03/18/2018 9:40 am - Adin Roger M.D. at [facility]05/27/2018 9:40 am - Sherley Negrete MD at [facility] Medicine - [address]07/01/2018 8:30 am - Derrek Corona M.D. at [facility]02/26/2018 - Sherley Negrete MDG43.109 Migraine with aura, not intractable, without status migrainoFollow up:3 mrwmyzJ32.1 Bradycardia, unspecifiedReferral:Vini Santiago MD, FACC, FASNC, Cardiovsclr CicmbtqR72.83 Other fatigueComments:you may benefit from a stimulant like Provigil but we should consult with the field merchandiser aebyuxK59.0 Elevated blood- pressure reading, without diagnosis of hypertComments:dfmqeptqI82.2 CervicalgiaNew Therapy:Physical Therapy
[2018-03-11] MEDS ORDERED: NS 0.9% 1000 ML** 1,000 ML IV ONE (10:36)
[2018-03-11] MEDS ORDERED: Ondansetron INJ* 2 MG/ML VIAL IV ONE (10:37)
[2018-03-11] MEDS ORDERED: Meclizine TAB* 12.5 MG PO ONE (10:38)
--- NOTE | 2018-03-11 10:45 | ED ---
Dizziness - HPI Summary HPI Summary: This patient is a 68 male that was brought in by ambulance from Dr. Joseph office. 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 Lynn. For the last month he has been dizzy and Dr. Joseph does not think this is related to his CLL, he was also bradycardic in her office. She called in report and believes the patient should be worked up here. He is on Eliquis for PE that was dx in January 2018. The patient states with the dizziness he has fatigue and mild nausea. He states his normal heart rate is in the 40s, he states this has been like this for as long as he can remember. He states the dizziness began around the time of him beginning Eliquis. He denies any feelings of depression and sleep disturbances. The dizziness is described as the room spinning and sometimes it feels like he is spinning. The dizziness is triggered by exertion. NKDA. - History Of Current Complaint Chief Complaint: EDDizziness Stated Complaint: DIZZINESS/LOW HEART RATE Time Seen by Provider: 03/11/18 10:36 Hx Obtained From: Patient Onset/Duration: Still Present Timing: Constant Severity Initially: Moderate Severity Currently: Moderate Character: Head Spinning, Room Spinning, Dizzy Associated Signs And Symptoms: Positive: Nausea - Allergies/Home Medications Allergies/Adverse Reactions: Allergies Allergy/AdvReac Type Severity Reaction Status Date / Time No Known Allergies Allergy Verified 12/25/17 15:46 Home Medications: Home Medications Apixaban* [Eliquis*] 5 mg PO BID 03/11/18 [History Confirmed 03/11/18] Magnesium Oxide [Magnesium] 500 mg PO DAILY 03/11/18 [History Confirmed 03/11/18 ] Multivitamins/Minerals TAB* [Theragran/minerals TAB*] 1 tab PO DAILY 03/11/18 [ History Confirmed 03/11/18] Riboflavin (B2) (NF) [Vitamin B-2 (NF)] 200 mg PO BID 03/11/18 [History Confirmed 03/11/18] SUMAtriptan TAB* [Imitrex TAB*] 100 - 200 mg PO DAILY PRN 03/11/18 [History Confirmed 03/11/18] PMH/Surg Hx/FS Hx/Imm Hx Endocrine/Hematology History: Denies: Hx Anticoagulant Therapy - ASA daily, Hx Blood Disorders, Hx Diabetes , Hx Thyroid Disease, Hx Unexplained Bleeding Cardiovascular History: Reports: Hx Embolism - pe, Hx Hypercholesterolemia - on lipitor Denies: Hx Deep Vein Thrombosis, Hx Hypertension, Hx Pacemaker/ICD, Other Cardiovascular Problems/Disorders Respiratory History: Denies: Hx Asthma, Hx Chronic Obstructive Pulmonary Disease (COPD), Other Respiratory Problems/Disorders GI History: Denies: Hx Ulcer, Other GI Disorders History: Denies: Hx Renal Disease, Other Problems/Disorders Musculoskeletal History: Reports: Other Musculoskeletal History - Bilateral inguinal and umbilical hernias Sensory History: Reports: Hx Contacts or Glasses - Glasses Denies: Hx Hearing Aid Opthamlomology History: Reports: Hx Contacts or Glasses - Glasses Neurological History: Reports: Hx Headaches - has prn med, Hx Migraine - has prn med Denies: Other Neuro Impairments/Disorders Psychiatric History: Denies: Hx Panic Disorder - Surgical History Surgery Procedure, Year, and Place: Tonsillectomy as a child. Colonoscopy [id number]. HERNIA REPAIR Hx Anesthesia Reactions: Yes - states they had a hard time waking him up, Pulse dropped low per pt Infectious Disease History: No Infectious Disease History: Denies: Hx Hepatitis, Hx Human Immunodeficiency Virus (HIV), Traveled Outside the [place] in Last 30 Days - Family History Known Family History: Negative: Renal Disease, Respiratory Disease, Seizure Disorder - Social History Alcohol Use: Weekly Alcohol Amount: 1-2 per night Hx Substance Use: No Substance Use Type: Reports: None Hx Tobacco Use: No Smoking Status (MU): Former Smoker Review of Systems Positive: Fatigue Positive: Nausea Neurological: Other - dizzy Negative: Depressed All Other Systems Reviewed And Are Negative: Yes Physical Exam - Summary Physical Exam Summary: GENERAL: Patient is a well-developed and nourished M who is lying comfortable in the stretcher. Patient is not in any acute respiratory distress. HEAD AND FACE: Normocephalic EYES: PERRLA, EOMI x 2. EARS: Hearing grossly intact. MOUTH: Oropharynx within normal limits. NECK: Supple, trachea is midline, no adenopathy, no JVD, no carotid bruit. CHEST: Symmetric, no tenderness at palpation LUNGS: Clear to auscultation bilaterally. No wheezing or crackles. CVS: Regular rate and rhythm, S1 and S2 present, no murmurs or gallops appreciated. ABDOMEN: Soft, non-tender. Bowel sounds are normal. No abdominal abnormal pulsations. EXTREMITIES: Full ROM in all major joints, no edema, no cyanosis or clubbing. NEURO: Alert and oriented x 3. No acute neurological deficits. Speech is normal and follows commands.Cranial nerves II-XII grossly intact, no dysmetria finger to nose, nml heel to khan SKIN: Dry and warm Triage Information Reviewed: Yes Vital Signs On Initial Exam: Initial Vitals Temp Pulse Resp BP Pulse Ox 98.6 F 43 18 133/65 99 03/11/18 10:15 03/11/18 10:15 03/11/18 10:15 03/11/18 10:15 03/11/18 10:15 Vital Signs Reviewed: Yes - Madhav Coma Scale Best Eye Response: 4 - Spontaneous Best Motor Response: 6 - Obeys Commands Best Verbal Response: 5 - Oriented Coma Scale Total: 15 Diagnostics - Vital Signs Vital Signs Temp Pulse Resp BP Pulse Ox 03/11/18 10:15 98.6 F 43 18 133/65 99 - Laboratory Result Diagrams: 03/11/18 10:48 03/11/18 10:48 Lab Statement: Any lab studies that have been ordered have been reviewed, and results considered in the medical decision making process. - Radiology CXR Radiology Interpretation Completed By: Radiologist Summary of Radiographic Findings: no active cardiopulmonary disease. ED physician has reviewed this report. - CT CT Brain CT Interpretation Completed By: Radiologist Summary of CT Findings: no acute intracranial pathology. ED physician has reviewed this report. - EKG 1039 Cardiac Rate: Bradycardia EKG Rhythm: Sinus Rhythm - at 46 BPM Summary of EKG Findings: findings consistent with LVH Re-Evaluation - Re-Evaluation First Eval Re-Evaluation Time: 14:16 Comment: The patient was seen by the hospitalist and offered admission. He declined and does have a cardiology appointment coming up. The feel that the patient can be discharged Dizzy Course/Dx - Course Assessment/Plan: This patient is a 68 male that was brought in by ambulance from Dr. Joseph office. 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 Lynn. For the last month he has been dizzy and Dr. Joseph does not think this is related to his CLL, he was also bradycardic in her office. She called in report and believes the patient should be worked up here. He is on Eliquis for PE that was dx in January 2018. The patient states with the dizziness he has fatigue and mild nausea. He states his normal heart rate is in the 40s, he states this has been like this for as long as he can remember. He states the dizziness began around the time of him beginning Eliquis. He denies any feelings of depression and sleep disturbances. The dizziness is described as the room spinning and sometimes it feels like he is spinning. The dizziness is triggered by exertion. NKDA. CXR reveals, per radiology, no active cardiopulmonary disease. CT Brain reveals, per radiology, no acute intracranial pathology. UA and bloodwork obtained. The patient was given zofran, antivert, and IV fluids. The patient does have a cardiology appointment in 6 days. He declined admission and the hospitalists believe he can be discharged home with an rx for antivert. - Diagnoses Provider Diagnoses: Generalized weakness - Provider Notifications Discussed Care Of Patient With: Kalie Cornejo Time Discussed With Above Provider: 12:15 Instructed by Provider To: Other - I discussed the case with Dr. Abernathy, I informed her of the patients work up. She wishes to discuss the case with Dr. Woodall, the hospitalist. She contacted Dr. Woodall and she will admit the patient. 1417: The hospitalist saw the patient and the patient declined admission. They feel it is safe to discharge him as he has an appointment at the [facility] tomorrow. Discharge - Sign-Out/Discharge Documenting (check all that apply): Patient Departure Patient Received Moderate/Deep Sedation with Procedure: No - Discharge Plan Condition: Stable Disposition: HOME Prescriptions: Meclizine TAB* [Antivert 12.5 TAB*] 25 mg PO TID #24 tab Ondansetron ODT TAB* [Zofran 4 MG Odt TAB*] 4 mg PO Q8H PRN #12 tab.odt PRN Reason: Nausea/Vomiting Patient Education Materials: Weakness (ED) Referrals: Sherley Negrete MD [Primary Care Provider] - 2 Days Additional Instructions: Follow up with your primary care physician in 1-3 days. RETURN TO THE EMERGENCY DEPARTMENT FOR CHANGING OR WORSENING SYMPTOMS. - Billing Disposition and Condition Condition: STABLE Disposition: Home - Attestation Statements Document Initiated by Scribe: Yes Documenting Scribe: Surjit Foster Provider For Whom Scribe is Documenting (Include Credential): Nidhi Rodriguez MD Scribe Attestation: I, Surjit Foster , scribed for Nidhi Rodriguez MD on 03/12/18 at 1037. Scribe Documentation Reviewed: Yes Provider Attestation: The documentation as recorded by the scribeSurjit accurately reflects the service I personally performed and the decisions made by me, Nidhi oRdriguez MD Status of Scribe Document: Viewed
[2018-03-11 11:08] LABS: ABS Basophils 0.1 10^3/ul (0-0.2); ABS Eosinophils 0.1 10^3/ul (0-0.6); ABS Lymphocytes 34.4 10^3/ul (1.0-4.8); ABS Monocytes 0.7 10^3/ul (0-0.8); ABS Neutrophils 3.4 10^3/ul (1.5-7.7); Eosinophil % 0.2 %; Hematocrit 43 % (42-52); Hemoglobin 14.2 g/dl (14.0-18.0); Mean Corpuscular HGB Conc 33 g/dl (31-36); Mean Corpuscular Hemoglobin 31 pg (27-31); Mean Corpuscular Volume 93 fL (80-94); Mean Platelet Volume 6.9 fL (7.4-10.4); Platelet Count 274 10^3/ul (150-450); Red Blood Count 4.61 10^6/ul (4.00-5.40); Red Cell Distribution Width 14 % (10.5-15); White Blood Count 38.6 10^3/ul (3.5-10.8)
[2018-03-11 11:10] LABS: Activated Partial Thrombo Time 32.5 seconds (26.0-36.3); INR 0.97 (0.77-1.02)
[2018-03-11 11:22] LABS: Troponin I 0.01 ng/mL (<0.04)
[2018-03-11 11:24] LABS: Albumin 4.7 g/dL (3.2-5.2); Albumin/Globulin Ratio 2.5 (1-3); Calcium 9.9 mg/dL (8.6-10.3); EGFR African American 120.9 (>60); EGFR Non-African American 99.9 (>60); Globulin 1.9 g/dL (2-4); Magnesium 2.2 mg/dL (1.9-2.7); Potassium 4.4 mmol/L (3.5-5.0); Total Bilirubin 0.6 mg/dL (0.2-1.0); Total Protein 6.6 g/dL (6.4-8.9)
[2018-03-11 12:00] LABS: TSH (Thyroid Stimulating Horm) 1.35 mcIU/mL (0.34-5.60)
[2018-03-11 12:02] LABS: Free T4 0.94 ng/dL (0.61-1.12)
[2018-03-11 14:27] LABS: Urine Appearance Cloudy; Urine Bilirubin Negative (Negative); Urine Blood Negative (Negative); Urine Color Yellow; Urine Glucose Negative (Negative); Urine Ketones Negative (Negative); Urine Nitrite Negative (Negative); Urine Protein Negative (Negative); Urine Specific Gravity 1.006 (1.010-1.030); Urine Urobilinogen Negative (Negative)
[2018-03-11 14:58] VITALS: BP 125/75
--- NOTE | 2018-03-11 17:01 | CONS ---
CC: Dr. Negrete; Dr. Kalie Cornejo * CONSULTATION REPORT: DATE OF CONSULT: 03/11/17 - EMERGENCY DEPT PRIMARY CARE PROVIDER: Dr. Negrete. OTHER PROVIDER: Dr. Kalie Cornejo. REQUESTING PHYSICIAN IN CONSULT: Dr. Rodriguez, Emergency Department Medicine. ATTENDING PHYSICIAN: Dr. Rosa Mejia; dictated by Jamar Abdullahi NP. REASON FOR CONSULT: Dizziness, fatigue, bradycardia; evaluation for admission. HISTORY OF PRESENT ILLNESS: The patient presented to the emergency department today after being seen in Dr. Cornejo's office as a followup to his CLL stage 1. The reason why the patient was at the emergency room is that while visiting with Dr. Cornejo, the patient had complained of dizziness and feeling like that he needed to lie down. The patient's vital signs were obtained and he was noted to be bradycardic. Due to symptoms not been clinically associated with CLL, the patient was sent to the emergency department for further evaluation. When discussing this episode with the patient, the patient reports that the symptoms have been going on for about 1 month. He reports he started Eliquis in early January for a pulmonary embolism and about 2 weeks after he started having severe fatigue, occasional dizziness/lightheadedness, and feeling that he needed more rest than normal. As for the bradycardia, the patient reports that this is baseline for him for several years. He reports when he obtained his very first colonoscopy, it was documented that his heart rate was in the 40s. In addition, his adds that both of his sons have asymptomatic bradycardia also. Back to today's event, the patient reports the episode that was witnessed in Dr. Cornejo's office is not different from the episodes that he has been experiencing for about 1 month. He reports that these symptoms vary in severity and frequency, but have not increased in severity or increased in frequency since onset. The patient gives an example that he can complete his F[employer]pt[employer] workout in the morning, but we will pay for it later as he has to take a very long nap. In addition, he will have feelings of needing to lie down after doing simple activities. PAST MEDICAL HISTORY: 1. Pulmonary embolism in 2011. 2. HLD. 3. Migraine. 4. ADD with anxiety and depression. 5. CLL. 6. Exposure to [employer] [place]. PAST SURGICAL HISTORY: 1. Tonsillectomy. 2. Hernia repair. HOME MEDICATIONS: 1. Vitamin B2 2000 mg p.o. b.i.d. 2. Multivitamin 1 tab p.o. daily. 3. Imitrex 100 to 200 mg p.o. daily p.r.n. 4. Lipitor 40 mg p.o. q.a.m. 5. Eliquis 5 mg p.o. b.i.d. 6. Magnesium oxide 500 mg p.o. daily. ALLERGIES: No known drug allergies. SOCIAL HISTORY: The patient is . He is a former smoker, quit in . He drinks approximately 5 alcoholic beverages per week. He denies substance abuse. He does exercise regularly. REVIEW OF SYSTEMS: Constitutional: The patient denies fevers, denies weight loss, denies anorexia. Cardiac: The patient denies chest pain, denies edema, denies palpitations. Respiratory: No cough, no hemoptysis, no shortness of breath. GI: No nausea or vomiting, no diarrhea, no abdominal pain. : No gross hematuria, no dysuria. Neuro: No focal weakness or sensory loss. The patient does report overall weakness and fatigue. Eyes: No visual complaints. ENT: No dysphagia. Musculoskeletal: No arthralgias or myalgias. Skin: No rashes or lesions. Psych: No psychosis of anxiety or depression. PHYSICAL EXAM: Vital Signs: BP 135/70, O2 saturation 100% on room air, respirations 16, pulse 50. Appearance: The patient is alert, pleasant, in no distress. Eyes: Conjunctivae pink and moist. PERRLA. EOMs intact. ENT: External ear and nose normal. Lips within normal limits. Oral mucosa is moist without lesions. Posterior oropharynx is free from erythema, lesions or exudate. Lymphatic: No cervical or supraclavicular lymphadenopathy. Cardiac: No murmurs, rubs, or gallops. S1, S2 present. The patient is bradycardic. No lower extremity edema. Pedal pulses 2+ bilaterally. Respiratory: No accessory muscle use. Lung sounds are clear. No rhonchi, wheezes, or rubs. Musculoskeletal: No clubbing or cyanosis. No abnormality. Full range of motion. Skin: No rashes or abnormalities. Neuro: Cranial nerves II through XII intact. Moves all extremities well. Sensation intact. Coordination intact. No drift. Psych: Alert and oriented x3. Mood and affect good. ASSESSMENT AND PLAN: Mr. Gray is a 68-year-old male with a past medical history significant for pulmonary embolism, HLD, migraine, chronic lymphocytic leukemia; who presented to the emergency department today from Dr. Cornejo's office due to dizziness, fatigue, bradycardia. We have evaluated the patient and discussed admission, but at this time, the patient would prefer not to be admitted and followup as an outpatient and we agreed with this plan. 1. Fatigue/dizziness: I have spoken with Dr. Cornejo and she reports this amount of fatigue and dizziness is not associated with chronic lymphocytic leukemia, stage 1. The patient has been talking to his primary care provider, Dr. Negrete about these symptoms and they have scheduled a followup with Cardiology, Dr. Roegr on 03/18/18 for further evaluation. The patient did have a Holter monitor, which revealed sinus bradycardia with occasional premature beats, but no other concerning findings. Since the patient can do his calisthenics and walks without shortness of breath, chest pain, or dyspnea and only have some fatigue later, I believe the patient is safe for discharge and followup as an outpatient. I believe the patient would benefit from an echocardiogram and further cardiac workup. I have discussed at length with the patient and his about signs and symptoms or new or worsening symptoms and when to return to the emergency department. Both stated understanding. 2. Bradycardia: The patient reports that his bradycardia is not new and that has been going on for several years. The patient reports symptoms started about a month ago and bradycardia present for longer, so I do not believe the symptoms are necessarily associated with bradycardia, but we will know further when he has full cardiac workup. 3. Pulmonary embolism: The patient is on Eliquis. The patient is to continue same and followup with primary care provider. Due to recent pulmonary embolism , I believe this is even more reason the patient needs an echocardiogram. I did offer an OBV stay with an echocardiogram and tele, but the patient has declined. 4. HLD: The patient to continue medications the same. 5. Migraines: The patient to continue the medication the same. 6. Chronic lymphocytic leukemia: As previously mentioned, Dr. Cornejo does not believe that these symptoms are associated with the patient's chronic lymphocytic leukemia, therefore, he should follow up with Dr. Cornejo as recommended. 7. Followup: [facility]. The patient also has a followup with Dr. Roger on 03/18/18. I have encouraged the patient to call Dr. Roger's office to see if he can get in this week. In addition, I have encouraged the patient to follow up with his primary care provider. I have discussed this with the ED provider, who agrees with the discharge of the patient. TIME SPENT: Approximately 35 minutes was spent on this consultation, greater than half the time was spent [id number] with the patient and caregiver obtaining my history, performing physical exam, and reviewing the plan of care. The case has been reviewed with my attending, Dr. Mejia, who is in agreement with my plan. JAMAR ABDULLAHI, HUBERT [id number]/[facility] #: [id number] PARMJIT
== END 2018-03-11 15:00 | disposition home or self-care (01) ==
LOC: ED 10:06
DX: R53.83 Other fatigue (principal); R11.0 Nausea; R42 Dizziness and giddiness; Z87.891 Personal history of nicotine dependence
CPT/HCPCS: 36415; 70450; 71045; 80053; 81003; 83605; 83735; 83880; 84439; 84443; 84484; 85025; 85610; 85730; 93005; 96361; 96374; 99283; A9270-GY

== ENCOUNTER 2019-07-22 08:55 | Inpatient (IN) ==
[2019-07-22] MEDS ORDERED: EPINEPHrine PEN ADULT(NF) 0.3 MG SYRINGE ONE (09:28)
[2019-07-22 09:36] LABS: Albumin 4.7 g/dL (3.2-5.2); Albumin/Globulin Ratio 2.4 (1-3); BUN/Creatinine Ratio 21.8 (8-20); Calcium 9.5 mg/dL (8.6-10.3); EGFR African American 118.7 (>60); EGFR Non-African American 98.1 (>60); Magnesium 2.2 mg/dL (1.9-2.7); Phosphorus 3.6 mg/dL (2.5-5.0); Total Bilirubin 0.4 mg/dL (0.2-1.0); Total Protein 6.7 g/dL (6.4-8.9); Uric Acid 2.7 mg/dL (4.4-7.6)
[2019-07-22 09:46] LABS: Hematocrit 33 % (42-52); Hemoglobin 10.9 g/dL (14.0-18.0); Mean Corpuscular HGB Conc 34 g/dL (31-36); Mean Corpuscular Hemoglobin 33 pg (27-31); Mean Corpuscular Volume 99 fL (80-94); Mean Platelet Volume 7.3 fL (7.4-10.4); Platelet Count 241 10^3/uL (150-450); Red Blood Count 3.29 10^6 /uL (4.18-5.48); Red Cell Distribution Width 14 % (10-15); White Blood Count 523.6 10^3/uL (3.5-10.8)
[2019-07-22 09:49] LABS: Potassium 5.7 mmol/L (3.5-5.0)
[2019-07-22] MEDS ORDERED: Ondansetron 4 mg VIAL 2 MG/ML 2 ml VIAL IV PRN (10:01)
[2019-07-22] MEDS ORDERED: LORazepam 0.5 mg TAB (*) PO PRN (10:09)
[2019-07-22] MEDS ORDERED: Famotidine IV 10 MG/ML 2 ml VIAL (20 mg) IV PRN (10:24)
[2019-07-22] MEDS ORDERED: methylPREDNISolone 125 mg 2 ML VIAL IV PRN (10:25)
[2019-07-22] MEDS ORDERED: Albuterol 2.5mg/3 ml (0.083%) NEB.SOLN INH PRN (10:27)
[2019-07-22] MEDS ORDERED: diPHENhydraMINE IV 50 MG/ML 1 ml VIAL (BENADRYL) IV PRN (10:27)
[2019-07-22] MEDS ORDERED: EPINEPHrine PEN ADULT(NF) 0.3 MG SYRINGE IM PRN (10:29)
[2019-07-22] MEDS ORDERED: Morphine 2 MG/ML SYRINGE IV PRN (10:31)
[2019-07-22] MEDS ORDERED: Butalb/Acetamin/Caff TAB 325-50-40MG PO PRN (10:36)
[2019-07-22] MEDS ORDERED: Dexamethasone IV 4 MG/ML 5 ML VIAL (20 MG) IVPB ONE (11:15)
[2019-07-22] MEDS ORDERED: diPHENhydraMINE IV 50 MG/ML 1 ml VIAL (BENADRYL) IV ONE (11:30)
[2019-07-22] MEDS ORDERED: Famotidine IV 10 MG/ML 2 ml VIAL (20 mg) IV ONE (11:30)
[2019-07-22] MEDS ORDERED: Rasburicase 6 MG in NS 0.9% 50 ML 46 ML IVPB ONE (12:00)
[2019-07-22] MEDS ORDERED: OBINUTUZUMAB IVPB ONE (12:30)
[2019-07-22] MEDS ORDERED: NS 0.9% IVPB ONE (12:30)
[2019-07-22] MEDS: NS 0.9% 1000 ml BAG 1,000 ML IV SCH ×2 (12:40→17:51)
[2019-07-22 16:18] LABS: ALT 21 U/L (7-52); AST 52 U/L (13-39); Albumin 4.1 g/dL (3.2-5.2); Albumin/Globulin Ratio 2.1 (1-3); Alkaline Phosphatase 133 U/L (34-104); BUN/Creatinine Ratio 22.9 (8-20); Blood Urea Nitrogen 16 mg/dL (6-24); CO2 Carbon Dioxide 26 mmol/L (22-32); Calcium 8.7 mg/dL (8.6-10.3); Chloride 109 mmol/L (101-111); EGFR African American 134.5 (>60); EGFR Non-African American 111.2 (>60); Glucose 139 mg/dL (70-100); Phosphorus 3.3 mg/dL (2.5-5.0); Sodium 138 mmol/L (135-145); Total Protein 6.1 g/dL (6.4-8.9); Uric Acid < 1.5 mg/dL (4.4-7.6)
[2019-07-22 16:21] LABS: Anion Gap 3 mmol/L (2-11); Potassium 7.6 mmol/L (3.5-5.0)
[2019-07-22] MEDS ORDERED: NS 0.9% 500 ml BAG 500 ML IV ONE (16:29)
[2019-07-22 18:16] LABS: Hematocrit 29 % (42-52); Hemoglobin 9.8 g/dL (14.0-18.0); Mean Corpuscular HGB Conc 33 g/dL (31-36); Mean Corpuscular Hemoglobin 32 pg (27-31); Mean Corpuscular Volume 98 fL (80-94); Mean Platelet Volume 7.2 fL (7.4-10.4); Platelet Count 161 10^3/uL (150-450); Red Blood Count 3.01 10^6 /uL (4.18-5.48); Red Cell Distribution Width 15 % (10-15); White Blood Count 317.8 10^3/uL (3.5-10.8)
[2019-07-22 18:18] LABS: ABS Basophils 0.3 10^3/ul (0-0.2); ABS Eosinophils 0.1 10^3/ul (0-0.6); ABS Lymphocytes 303.6 10^3/ul (1.0-4.8); Lymphocyte % 95.6 %
[2019-07-22] MEDS ORDERED: Calcium Gluconate 2 GM in NS 0.9% 100 ml BAG 100 ML IV ONE (19:04)
[2019-07-22] MEDS ORDERED: Insulin REGULAR 100 unit/ml(*) IV PUSH ONE (19:05)
[2019-07-22] MEDS ORDERED: Dextrose 50% Syringe 50 ml 25 GM/50 ML SYRINGE IV PUSH PRN (19:06)
[2019-07-22] MEDS ORDERED: NS 0.9% 100 ml BAG 0 ML ONE (19:40)
[2019-07-22] MEDS ORDERED: Sodium Bicarb 8.4% Vial 50 ML 150 MEQ in D5W 1000 ml BAG 1,000 ML IV ONE (20:00)
[2019-07-22] MEDS ORDERED: D5W 1000 ml BAG 850 ML with Sodium Bicarb 8.4% Vial 50 ML 150 MEQ IV SCH (20:00)
[2019-07-22 20:04] LABS: BUN/Creatinine Ratio 24.1 (8-20); Calcium 8.7 mg/dL (8.6-10.3); EGFR African American 110.5 (>60); EGFR Non-African American 91.3 (>60)
[2019-07-22 20:05] LABS: Potassium 5.8 mmol/L (3.5-5.0)
[2019-07-22 21:58] LABS: LDH 293 U/L (140-271)
[2019-07-22 22:24] LABS: Albumin 3.8 g/dL (3.2-5.2)
[2019-07-22 22:30] LABS: Albumin/Globulin Ratio 2.7 (1-3); Globulin 1.4 g/dL (2-4); Phosphorus 3.8 mg/dL (2.5-5.0); Total Protein 5.2 g/dL (6.4-8.9); Uric Acid < 1.5 mg/dL (4.4-7.6)
[2019-07-22 22:37] LABS: ALT 26 U/L (7-52); AST 53 U/L (13-39); Alkaline Phosphatase 119 U/L (34-104); Anion Gap 8 mmol/L (2-11); BUN/Creatinine Ratio 24.7 (8-20); Blood Urea Nitrogen 20 mg/dL (6-24); CO2 Carbon Dioxide 24 mmol/L (22-32); Chloride 109 mmol/L (101-111); EGFR African American 113.7 (>60); EGFR Non-African American 93.9 (>60); Glucose 144 mg/dL (70-100); Potassium 4.4 mmol/L (3.5-5.0); Sodium 141 mmol/L (135-145)
[2019-07-22 23:04] LABS: ABS Basophils 1.4 10^3/ul (0-0.2); ABS Eosinophils 0.3 10^3/ul (0-0.6); ABS Lymphocytes 304.4 10^3/ul (1.0-4.8); ABS Monocytes 10.9 10^3/ul (0-0.8); Eosinophil % 0.1 %; Hematocrit 29 % (42-52); Hemoglobin 8.8 g/dL (14.0-18.0); Lymphocyte % 90.1 %; Mean Corpuscular HGB Conc 31 g/dL (31-36); Mean Corpuscular Hemoglobin 30 pg (27-31); Mean Corpuscular Volume 98 fL (80-94); Mean Platelet Volume 7.3 fL (7.4-10.4); Platelet Count 149 10^3/uL (150-450); Red Blood Count 2.94 10^6 /uL (4.18-5.48); Red Cell Distribution Width 15 % (10-15)
[2019-07-23 00:06] LABS: BUN/Creatinine Ratio 27.8 (8-20); Calcium 8.8 mg/dL (8.6-10.3); EGFR Non-African American 96.7 (>60); Potassium 4.4 mmol/L (3.5-5.0)
[2019-07-23 01:19] LABS: BUN/Creatinine Ratio 29.3 (8-20); Calcium 8.7 mg/dL (8.6-10.3); EGFR African American 124.2 (>60); EGFR Non-African American 102.7 (>60)
[2019-07-23 01:25] LABS: Potassium 5.3 mmol/L (3.5-5.0)
[2019-07-23] MEDS: NS 0.9% 1000 ml BAG 1,000 ML IV SCH ×2 (03:24→14:05)
[2019-07-23 06:24] LABS: ALT 20 U/L (7-52); AST 38 U/L (13-39); Albumin 3.4 g/dL (3.2-5.2); Albumin/Globulin Ratio 2.4 (1-3); Alkaline Phosphatase 79 U/L (34-104); Anion Gap 4 mmol/L (2-11); BUN/Creatinine Ratio 30.4 (8-20); Blood Urea Nitrogen 21 mg/dL (6-24); CO2 Carbon Dioxide 29 mmol/L (22-32); Calcium 8.4 mg/dL (8.6-10.3); Chloride 107 mmol/L (101-111); EGFR African American 136.8 (>60); Globulin 1.4 g/dL (2-4); Glucose 141 mg/dL (70-100); Phosphorus 3.9 mg/dL (2.5-5.0); Potassium 4.6 mmol/L (3.5-5.0); Sodium 140 mmol/L (135-145); Total Protein 4.8 g/dL (6.4-8.9); Uric Acid < 1.5 mg/dL (4.4-7.6)
[2019-07-23 06:30] LABS: ABS Basophils 0.8 10^3/ul (0-0.2); ABS Eosinophils 0.1 10^3/ul (0-0.6); ABS Lymphocytes 269.8 10^3/ul (1.0-4.8); ABS Monocytes 8.2 10^3/ul (0-0.8); Hematocrit 26 % (42-52); Hemoglobin 8.2 g/dL (14.0-18.0); Lymphocyte % 90.5 %; Mean Corpuscular HGB Conc 31 g/dL (31-36); Mean Corpuscular Hemoglobin 30 pg (27-31); Mean Corpuscular Volume 97 fL (80-94); Mean Platelet Volume 7.3 fL (7.4-10.4); Platelet Count 146 10^3/uL (150-450); Red Blood Count 2.72 10^6 /uL (4.18-5.48); Red Cell Distribution Width 15 % (10-15); White Blood Count 298.4 10^3/uL (3.5-10.8)
[2019-07-23 06:33] LABS: LDH 197 U/L (140-271)
[2019-07-23] MEDS ORDERED: Dexamethasone IV 4 MG/ML 5 ML VIAL (20 MG) IVPB ONE (08:15)
[2019-07-23] MEDS ORDERED: diPHENhydraMINE IV 50 MG/ML 1 ml VIAL (BENADRYL) IV ONE (08:15)
[2019-07-23] MEDS ORDERED: Famotidine IV 10 MG/ML 2 ml VIAL (20 mg) IV ONE (08:30)
[2019-07-23] MEDS ORDERED: OBINUTUZUMAB IVPB ONE (09:00)
[2019-07-23] MEDS ORDERED: NS 0.9% IVPB ONE (09:00)
[2019-07-23 12:57] LABS: ALT 19 U/L (7-52); AST 36 U/L (13-39); Albumin 3.5 g/dL (3.2-5.2); Albumin/Globulin Ratio 2.5 (1-3); Alkaline Phosphatase 72 U/L (34-104); BUN/Creatinine Ratio 30.3 (8-20); Blood Urea Nitrogen 20 mg/dL (6-24); CO2 Carbon Dioxide 28 mmol/L (22-32); Calcium 8.2 mg/dL (8.6-10.3); Chloride 107 mmol/L (101-111); Globulin 1.4 g/dL (2-4); Glucose 157 mg/dL (70-100); Phosphorus 3.2 mg/dL (2.5-5.0); Sodium 138 mmol/L (135-145); Total Protein 4.9 g/dL (6.4-8.9); Uric Acid < 1.5 mg/dL (4.4-7.6)
[2019-07-23 12:58] LABS: Anion Gap 3 mmol/L (2-11); LDH 201 U/L (140-271); Potassium 5.6 mmol/L (3.5-5.0)
[2019-07-23] MEDS: CMC:Rosuvastatin 5 mg TAB (NF) PO SCH (14:05)
[2019-07-23 14:07] LABS: ABS Basophils 0.8 10^3/ul (0-0.2); ABS Eosinophils 0.3 10^3/ul (0-0.6); ABS Lymphocytes 231.5 10^3/ul (1.0-4.8); ABS Monocytes 2.3 10^3/ul (0-0.8); Eosinophil % 0.1 %; Hematocrit 27 % (42-52); Hemoglobin 8.6 g/dL (14.0-18.0); Lymphocyte % 92.5 %; Mean Corpuscular HGB Conc 32 g/dL (31-36); Mean Corpuscular Hemoglobin 31 pg (27-31); Mean Corpuscular Volume 97 fL (80-94); Mean Platelet Volume 7.1 fL (7.4-10.4); Platelet Count 132 10^3/uL (150-450); Red Blood Count 2.75 10^6 /uL (4.18-5.48); Red Cell Distribution Width 15 % (10-15); White Blood Count 250.6 10^3/uL (3.5-10.8)
[2019-07-23] MEDS ORDERED: Lorazepam PYXIS KEY PRN (15:21)
[2019-07-23] MEDS ORDERED: LORazepam 2 mg VIAL 1 ml IV PUSH ONE (15:22)
[2019-07-23 18:21] LABS: Albumin 3.8 g/dL (3.2-5.2); Albumin/Globulin Ratio 2.4 (1-3); BUN/Creatinine Ratio 24.4 (8-20); Calcium 8.3 mg/dL (8.6-10.3); EGFR African American 112.1 (>60); EGFR Non-African American 92.6 (>60); Globulin 1.6 g/dL (2-4); Total Bilirubin 0.3 mg/dL (0.2-1.0); Total Protein 5.4 g/dL (6.4-8.9); Uric Acid 1.5 mg/dL (4.4-7.6)
[2019-07-23 18:43] LABS: Hematocrit 29 % (42-52); Hemoglobin 9.4 g/dL (14.0-18.0); Mean Corpuscular HGB Conc 32 g/dL (31-36); Mean Corpuscular Hemoglobin 31 pg (27-31); Mean Corpuscular Volume 97 fL (80-94); Platelet Count 150 10^3/uL (150-450); Red Blood Count 2.98 10^6 /uL (4.18-5.48); Red Cell Distribution Width 15 % (10-15)
[2019-07-23 18:44] LABS: ABS Basophils 0.2 10^3/ul (0-0.2); ABS Eosinophils 0.1 10^3/ul (0-0.6); ABS Lymphocytes 33.8 10^3/ul (1.0-4.8); ABS Monocytes 0.4 10^3/ul (0-0.8); Eosinophil % 0.2 %; Lymphocyte % 92.7 %
[2019-07-23 18:45] LABS: Microcytosis 1+
[2019-07-23 19:02] LABS: Potassium 6.4 mmol/L (3.5-5.0)
[2019-07-23] MEDS ORDERED: Patiromer POWDER 8.4 GM PAK PO SCH (20:00)
[2019-07-23 23:08] LABS: Potassium 4.3 mmol/L (3.5-5.0)
[2019-07-23 23:21] LABS: ALT 19 U/L (7-52); AST 22 U/L (13-39); Albumin 3.4 g/dL (3.2-5.2); Albumin/Globulin Ratio 2.1 (1-3); Alkaline Phosphatase 71 U/L (34-104); Anion Gap 5 mmol/L (2-11); BUN/Creatinine Ratio 32.5 (8-20); Blood Urea Nitrogen 26 mg/dL (6-24); CO2 Carbon Dioxide 26 mmol/L (22-32); Calcium 8.3 mg/dL (8.6-10.3); Chloride 110 mmol/L (101-111); EGFR African American 115.3 (>60); EGFR Non-African American 95.3 (>60); Globulin 1.6 g/dL (2-4); Glucose 210 mg/dL (70-100); Phosphorus 3.9 mg/dL (2.5-5.0); Sodium 141 mmol/L (135-145); Uric Acid < 1.5 mg/dL (4.4-7.6)
[2019-07-24] MEDS: NS 0.9% 1000 ml BAG 1,000 ML IV SCH (01:05)
[2019-07-24 01:08] LABS: LDH 153 U/L (140-271)
[2019-07-24 07:21] LABS: Potassium, Whole Blood 4.3 mmol/L (3.4-4.5)
[2019-07-24 07:25] VITALS: BP 129/54
[2019-07-24 07:29] LABS: Anion Gap 4 mmol/L (2-11); CO2 Carbon Dioxide 27 mmol/L (22-32); Chloride 110 mmol/L (101-111); Glucose 125 mg/dL (70-100); Potassium 4.1 mmol/L (3.5-5.0); Sodium 141 mmol/L (135-145)
[2019-07-24 07:35] LABS: Hematocrit 27 % (42-52); Mean Corpuscular HGB Conc 33 g/dL (31-36); Mean Corpuscular Hemoglobin 32 pg (27-31); Mean Corpuscular Volume 98 fL (80-94); Mean Platelet Volume 7.3 fL (7.4-10.4); Platelet Count 130 10^3/uL (150-450); Red Cell Distribution Width 15 % (10-15)
[2019-07-24 07:45] LABS: LDH 119 U/L (140-271)
[2019-07-24 07:55] LABS: Albumin 3.3 g/dL (3.2-5.2)
[2019-07-24 08:03] LABS: ALT 17 U/L (7-52); AST 19 U/L (13-39); Albumin/Globulin Ratio 2.1 (1-3); Alkaline Phosphatase 66 U/L (34-104); BUN/Creatinine Ratio 32.8 (8-20); Blood Urea Nitrogen 22 mg/dL (6-24); Calcium 8.3 mg/dL (8.6-10.3); EGFR African American 141.5 (>60); EGFR Non-African American 116.9 (>60); Globulin 1.6 g/dL (2-4); Phosphorus 3.3 mg/dL (2.5-5.0); Total Protein 4.9 g/dL (6.4-8.9)
[2019-07-24] MEDS: CMC:Rosuvastatin 5 mg TAB (NF) PO SCH (08:03)
[2019-07-24 08:21] LABS: Uric Acid < 1.5 mg/dL (4.4-7.6)
[2019-07-24 08:33] LABS: ABS Basophils 0.3 10^3/ul (0-0.2); ABS Lymphocytes 173.6 10^3/ul (1.0-4.8); Lymphocyte % 93.7 %; White Blood Count 185.2 10^3/uL (3.5-10.8)
== END 2019-07-24 11:30 | disposition home or self-care (01) | DRG 847 ==
LOC: MEDTELE 08:55 → CHOA 08:55
PROVIDERS: ADMIT Internal Medicine Hematology & Oncology; ATTEND Internal Medicine Hematology & Oncology

== ENCOUNTER 2019-07-29 08:14 | Observation (INO) ==
[2019-07-29] MEDS ORDERED: methylPREDNISolone 125 mg 2 ML VIAL IV PRN (08:45)
[2019-07-29] MEDS ORDERED: diPHENhydraMINE IV 50 MG/ML 1 ml VIAL (BENADRYL) SLOW PUSH PRN (08:46)
[2019-07-29] MEDS ORDERED: Famotidine IV 10 MG/ML 2 ml VIAL (20 mg) IV SLOW PU PRN (08:47)
[2019-07-29] MEDS ORDERED: EPINEPHrine PEN ADULT(NF) 0.3 MG SYRINGE IM PRN (08:48)
[2019-07-29] MEDS ORDERED: Morphine 2 MG/ML SYRINGE IV PRN (08:49)
[2019-07-29] MEDS ORDERED: Dexamethasone IV 4 MG/ML 5 ML VIAL (20 MG) IVPB ONE (09:00)
[2019-07-29] MEDS ORDERED: Famotidine IV 10 MG/ML 2 ml VIAL (20 mg) IV SLOW PU ONE (09:15)
[2019-07-29] MEDS ORDERED: diPHENhydraMINE IV 50 MG/ML 1 ml VIAL (BENADRYL) SLOW PUSH ONE (09:15)
[2019-07-29] MEDS ORDERED: Rasburicase 6 MG in NS 0.9% 50 ML 46 ML IVPB ONE (09:30)
[2019-07-29 09:47] LABS: Hematocrit 33 % (42-52); Hemoglobin 10.5 g/dL (14.0-18.0); Mean Corpuscular HGB Conc 32 g/dL (31-36); Mean Corpuscular Hemoglobin 31 pg (27-31); Mean Corpuscular Volume 99 fL (80-94); Mean Platelet Volume 7.3 fL (7.4-10.4); Platelet Count 167 10^3/uL (150-450); Red Blood Count 3.37 10^6 /uL (4.18-5.48); Red Cell Distribution Width 15 % (10-15); White Blood Count 67.1 10^3/uL (3.5-10.8)
[2019-07-29 09:49] LABS: Albumin 4.3 g/dL (3.2-5.2); Albumin/Globulin Ratio 2.3 (1-3); BUN/Creatinine Ratio 23.3 (8-20); Calcium 9.1 mg/dL (8.6-10.3); EGFR African American 128.2 (>60); EGFR Non-African American 105.9 (>60); Globulin 1.9 g/dL (2-4); Phosphorus 3.3 mg/dL (2.5-5.0); Potassium 4.2 mmol/L (3.5-5.0); Total Bilirubin 0.4 mg/dL (0.2-1.0); Total Protein 6.2 g/dL (6.4-8.9); Uric Acid 2.6 mg/dL (4.4-7.6)
[2019-07-29 10:19] LABS: ABS Eosinophils 0.3 10^3/ul (0-0.6); ABS Lymphocytes 61.4 10^3/ul (1.0-4.8); ABS Monocytes 0.8 10^3/ul (0-0.8); Eosinophil % 0.4 %; Lymphocyte % 91.6 %
[2019-07-29] MEDS ORDERED: OBINUTUZUMAB IVPB ONE (10:30)
[2019-07-29] MEDS ORDERED: NS 0.9% IVPB ONE (10:30)
[2019-07-29] MEDS: NS 0.9% 1000 ml BAG 1,000 ML IV SCH (11:44)
[2019-07-29] MEDS ORDERED: Lorazepam PYXIS KEY PRN ×2 (12:33→16:06)
[2019-07-29] MEDS ORDERED: LORazepam 2 mg VIAL 1 ml IV PUSH PRN (12:33)
[2019-07-29 15:22] LABS: Anion Gap 5 mmol/L (2-11); BUN/Creatinine Ratio 21.3 (8-20); Blood Urea Nitrogen 17 mg/dL (6-24); CO2 Carbon Dioxide 26 mmol/L (22-32); Calcium 8.9 mg/dL (8.6-10.3); Chloride 106 mmol/L (101-111); EGFR African American 115.3 (>60); EGFR Non-African American 95.3 (>60); Glucose 211 mg/dL (70-100); Phosphorus 2.6 mg/dL (2.5-5.0); Potassium 4.8 mmol/L (3.5-5.0); Sodium 137 mmol/L (135-145); Uric Acid < 1.5 mg/dL (4.4-7.6)
[2019-07-29 15:49] LABS: Hematocrit 31 % (42-52); Hemoglobin 10.2 g/dL (14.0-18.0); Mean Corpuscular HGB Conc 33 g/dL (31-36); Mean Corpuscular Hemoglobin 32 pg (27-31); Mean Corpuscular Volume 96 fL (80-94); Mean Platelet Volume 7.1 fL (7.4-10.4); Platelet Count 183 10^3/uL (150-450); Red Blood Count 3.22 10^6 /uL (4.18-5.48); Red Cell Distribution Width 15 % (10-15); White Blood Count 68.6 10^3/uL (3.5-10.8)
[2019-07-29] MEDS ORDERED: LORazepam 2 mg VIAL 1 ml IV PUSH ONE (16:06)
[2019-07-29 18:14] LABS: ABS Basophils 0.3 10^3/ul (0-0.2); ABS Eosinophils 0.1 10^3/ul (0-0.6); ABS Lymphocytes 61.8 10^3/ul (1.0-4.8); ABS Monocytes 0.4 10^3/ul (0-0.8); Eosinophil % 0.2 %; Lymphocyte % 90.1 %
[2019-07-29] MEDS: SAW PALMETTO 160 MG PO SCH (20:08)
[2019-07-29 20:50] LABS: Anion Gap 5 mmol/L (2-11); BUN/Creatinine Ratio 24.3 (8-20); Blood Urea Nitrogen 18 mg/dL (6-24); CO2 Carbon Dioxide 27 mmol/L (22-32); Calcium 8.7 mg/dL (8.6-10.3); Chloride 106 mmol/L (101-111); EGFR African American 126.2 (>60); EGFR Non-African American 104.3 (>60); Glucose 181 mg/dL (70-100); Phosphorus 3.2 mg/dL (2.5-5.0); Potassium 4.6 mmol/L (3.5-5.0); Sodium 138 mmol/L (135-145); Uric Acid < 1.5 mg/dL (4.4-7.6)
[2019-07-29 20:54] LABS: Hematocrit 29 % (42-52); Hemoglobin 9.6 g/dL (14.0-18.0); Mean Corpuscular HGB Conc 33 g/dL (31-36); Mean Corpuscular Hemoglobin 32 pg (27-31); Mean Corpuscular Volume 97 fL (80-94); Mean Platelet Volume 7.2 fL (7.4-10.4); Platelet Count 199 10^3/uL (150-450); Red Blood Count 3.05 10^6 /uL (4.18-5.48); Red Cell Distribution Width 15 % (10-15); White Blood Count 67.7 10^3/uL (3.5-10.8)
[2019-07-29 21:46] LABS: ABS Basophils 0.1 10^3/ul (0-0.2); ABS Eosinophils 0.1 10^3/ul (0-0.6); ABS Lymphocytes 62.8 10^3/ul (1.0-4.8); ABS Monocytes 0.3 10^3/ul (0-0.8); Eosinophil % 0.1 %; Lymphocyte % 92.8 %
[2019-07-30 03:27] LABS: Anion Gap 5 mmol/L (2-11); BUN/Creatinine Ratio 30.5 (8-20); Blood Urea Nitrogen 18 mg/dL (6-24); CO2 Carbon Dioxide 25 mmol/L (22-32); Calcium 8.7 mg/dL (8.6-10.3); Chloride 108 mmol/L (101-111); EGFR African American 163.9 (>60); EGFR Non-African American 135.4 (>60); Glucose 133 mg/dL (70-100); Sodium 138 mmol/L (135-145); Uric Acid < 1.5 mg/dL (4.4-7.6)
[2019-07-30 03:33] LABS: ABS Basophils 0.2 10^3/ul (0-0.2); ABS Monocytes 0.6 10^3/ul (0-0.8); Hematocrit 29 % (42-52); Hemoglobin 9.6 g/dL (14.0-18.0); Lymphocyte % 91.4 %; Mean Corpuscular HGB Conc 33 g/dL (31-36); Mean Corpuscular Hemoglobin 32 pg (27-31); Mean Corpuscular Volume 97 fL (80-94); Mean Platelet Volume 7.1 fL (7.4-10.4); Platelet Count 185 10^3/uL (150-450); Red Blood Count 3.02 10^6 /uL (4.18-5.48); Red Cell Distribution Width 15 % (10-15); White Blood Count 66.7 10^3/uL (3.5-10.8)
[2019-07-30] MEDS: NS 0.9% 1000 ml BAG 1,000 ML IV SCH (03:49)
[2019-07-30 08:18] LABS: Anion Gap 3 mmol/L (2-11); BUN/Creatinine Ratio 24.2 (8-20); Blood Urea Nitrogen 16 mg/dL (6-24); CO2 Carbon Dioxide 29 mmol/L (22-32); Calcium 8.7 mg/dL (8.6-10.3); Chloride 107 mmol/L (101-111); Glucose 111 mg/dL (70-100); Phosphorus 2.6 mg/dL (2.5-5.0); Potassium 4.1 mmol/L (3.5-5.0); Sodium 139 mmol/L (135-145); Uric Acid < 1.5 mg/dL (4.4-7.6)
[2019-07-30] MEDS: SAW PALMETTO 160 MG PO SCH (09:03)
[2019-07-30 09:09] LABS: ABS Lymphocytes 66.1 10^3/ul (1.0-4.8); ABS Monocytes 0.6 10^3/ul (0-0.8); Hematocrit 31 % (42-52); Hemoglobin 9.9 g/dL (14.0-18.0); Lymphocyte % 91.5 %; Mean Corpuscular HGB Conc 32 g/dL (31-36); Mean Corpuscular Hemoglobin 31 pg (27-31); Mean Corpuscular Volume 97 fL (80-94); Mean Platelet Volume 7.3 fL (7.4-10.4); Platelet Count 202 10^3/uL (150-450); Red Blood Count 3.15 10^6 /uL (4.18-5.48); Red Cell Distribution Width 15 % (10-15); White Blood Count 72.3 10^3/uL (3.5-10.8)
[2019-07-30 09:38] VITALS: BP 132/53
== END 2019-07-30 09:50 | disposition home or self-care (01) ==
LOC: CHOA 08:14 → MEDTELE 08:15 → INTOOBSV 08:15
PROVIDERS: ADMIT Internal Medicine Hematology & Oncology; ATTEND Internal Medicine Hematology & Oncology